=== PATIENT | female | born 1955 | race Caucasian/White ===

== ENCOUNTER 2023-10-09 21:24 | Emergency (ER) | payer OTHER, SELFPAY ==
[2023-10-09 21:28] VITALS: BP 105/84
[2023-10-09 21:46] LABS: % Basophils 0.8 % (0-2); % Eosinophils 2.1 % (0-6); % Immature Granulocytes 0.6 % (0-0.5); % Lymphocytes 19.9 % (20.5-51.1); % Monocytes 6.8 % (1.7-9.3); % Neutrophils 69.8 % (42.2-75.2); Absolute Basophils 0.1 10^3/uL (0-0.2); Absolute Eosinophils 0.2 10^3/uL (0-0.7); Absolute Lymphocytes 1.4 10^3/uL (1.2-3.4); Absolute Monocytes 0.5 10^3/uL (0.1-0.6); Absolute Neutrophils 4.9 10^3/uL (1.4-6.5); Hematocrit 40.8 % (37.0-47.0); Hemoglobin 14.3 g/dL (12.0-16.0); Mean Corpuscular Hgb 29.2 pg (27.0-31.0); Mean Corpuscular Volume 83.4 fL (81.0-99.0); Mean Platelet Volume 9.3 fL (7.4-10.4); Nucleated Red Blood Cells % 0 %; Platelet Count 202 10^3/uL (130-400); Red Blood Cell Count 4.89 10^6/uL (4.20-5.40); Red Cell Dist. Width 13.2 % (11.5-14.5); White Blood Cell Count 7.1 10^3/uL (4.8-10.8)
[2023-10-09 22:04] LABS: ALT (SGPT) 22 U/L (0-35); AST (SGOT) 31 U/L (14-36); Acetaminophen < 10 ug/ml (10-30); Albumin 4.9 g/dl (3.5-5.0); Alkaline Phosphatase 90 U/L (38-126); Blood Urea Nitrogen 20 mg/dl (7-17); Calcium 9.6 mg/dl (8.4-10.2); Carbon Dioxide 27 mmol/L (22-30); Chloride 103 mmol/L (98-107); Glucose 139 mg/dl (70-99); Potassium 3.8 mmol/L (3.5-5.1); Salicylate < 1.0 mg/dl (2.0-20.0); Sodium 138 mmol/L (135-145); Total Bilirubin 2.2 mg/dl (0.2-1.3); Total Protein 8.3 g/dl (6.3-8.2); eGFR > 60.00
--- NOTE | 2023-10-09 22:37 | ED.GENMED ---
History of Present Illness
General
Chief Complaint: Crisis Evaluation
Source: patient
Exam Limitations: none
Time Seen by Provider: 10/09/23 22:00
Travel History
Have you had any contact with someone who has COVID-19?: No
Do you have any symptoms of coronavirus? Fever > 100 degrees, chills, cough, shortness of breath, sore throat, loss of taste or smell, muscle aches, or headache?: No
History of Present Illness
History of Present Illness:
This is a 68 year old female that is brought in by family. Daughter states that she ran away yesterday and got lost in [place]. Patient states that she stayed in a hotel last night. Sstaes that she has been depressed and wanted to get away form it
all. Daughter states that this a chronic problem and she has been hospitalist before for this. Told by family that she was shaking earlier and that she is not eating. Patient states that she is dizzy and the room is spinning.Patient denies any
suicidal thoughts as states that would be the easy way out. Denies any fever, chills, chest pain, abd pain, nausea, vomiting, diarrhea, headache, urinary burning.
Past History
Past History
ED Past Medical History: COPD (on Spiriva and Dulera), Fibromyalgia (takes Aleve prn), HTN, Psychiatric (Anxiety, Depression) and Other (Diverticulitis, )
ED Past Surgical History: Bowel resection (Colon resection), Cholecystectomy, Gynecological (Hysterectomy) and Other (Hernia, )
Social History
Tobacco: Non-smoker
Alcohol: None
Drug: None
Personal:
Living: with family
Employment: Employed
Review of Systems
Review of Systems
All Other Systems: ROS reviewed and negative except as documented in HPI and ROS
Constitutional: Reports no symptoms; Denies fever or chills
EENT: Reports no symptoms
Respiratory: Reports trouble breathing (Always SOB); Denies cough
Cardiac: Reports no symptoms; Denies chest pain
ABD/GI: Reports no symptoms; Denies abdominal pain, nausea, vomiting or diarrhea
: Reports no symptoms; Denies dysuria, frequency or urgency
Musculoskeletal: Reports no symptoms
Skin: Reports no symptoms
Neurological: Reports dizzy; Denies headache
Psychiatric: Reports depression; Denies suicidal
Phy Exam
General Physical Exam
General Presentation: no apparent distress
General age: appears stated age
General Skin: warm and dry
General Habitus: elderly
General Mental: alert
General Hydration: dry mucous membranes
ENT Exam
ENT Exam: TM's normal, pharynx normal and neck supple
Eye Exam
Eye Exam: EOMI
Cardiovascular Exam
Cardiovascular Exam: regular rate/rhythm, no edema, no murmur and normal peripheral pulses
Pulmonary Exam
Pulmonary Exam: lungs clear, no respiratory distress, no rales, chest non tender, no crackles, no rhonchi, no wheezing and no cough
Gastrointestinal Exam
Gastrointestinal Exam: normal bowel sounds, non tender, soft, no organomegaly, no pulsatile mass and non distended
Musculoskeletal Exam
Musculoskeletal Exam: full ROM and no edema
Skin Exam
Skin Exam: normal color, warm/dry, no rash and no petechia
Psychiatric Exam
Psychiatric Exam: depressed (occasionally holding back tears)
Course
Orders/Labs/Results
Orders:
Orders
10/09/23 21:39
Acetaminophen Urgent
Alcohol Urgent
Complete Blood Count/With Diff Urgent
Comprehensive Metabolic Panel Urgent
Salicylate Urgent
10/09/23 22:13
Crisis Consult Urgent
Reason for Consult: evaluation
10/09/23 22:37
Add On- LAB Urgent
Tests Added?: alcohol
Urinalysis Reflex To Culture Urgent
Date Specimen was Collected: 10/10/23
Time Specimen was Collected: 00:27
Urine Drug Abuse Screen Urgent
Date Specimen was Collected: 10/10/23
Time Specimen was Collected: 00:27
0.9% Sodium Chloride 1000 ml [Nss] 1,000 ml IV BOLUS
10/09/23 22:42
COVID-19 Antigen Urgent
Source: Nasal Swab
10/10/23 00:27
Fentanyl, Urine Urgent
Urine Microscopic Reflex Cult Urgent
Urine Culture Urgent
[place] Source: U
Specimen Description:
Date Specimen was Collected: 10/10/23
Time Specimen was Collected: 00:27
Abnormal Lab Results
10/09/23 10/10/23
21:39 00:27
Immature Gran % 0.6 H %
(0-0.5)
Lymphocytes % 19.9 L %
(20.5-51.1)
BUN 20 H mg/dl
(7-17)
Glucose 139 H mg/dl
(70-99)
Total Bilirubin 2.2 H mg/dl
(0.2-1.3)
Total Protein 8.3 H g/dl
(6.3-8.2)
Leukocyte Esterase Rfl 1+ A
(Negative)
Urine RBC 7-10 A /HPF
(0-2)
Urine Bacteria (Reflex) Many A
(Negative)
Salicylates < 1.0 L mg/dl
(2.0-20.0)
Acetaminophen < 10 L ug/ml
(10-30)
U Benzodiazepines Scrn Positive H
(Negative)
U Marijuana (THC) Screen Positive H
(Negative)
10/09/23 21:39
10/09/23 21:39
Dehydration. glucose nonfasting. Total ramirez elevated. Total protein very slightly elevated. Negative for Salicylates and Acetaminophen
Alcohol negative, COVID negative. Urine Drub positive for Benzo's and Marijuana
Urine negative for infection.
Vital Signs
Initial and Last Documented VS:
Initial Vital Signs
Temp Pulse Resp BP Pulse Ox
98.3 F 85 18 105/84 94
10/09/23 21:28 10/09/23 21:28 10/09/23 21:28 10/09/23 21:28 10/09/23 21:28
Last Documented Vital Signs
Temp Pulse Resp BP Pulse Ox
98.3 F 85 18 105/84 94
10/09/23 21:28 10/09/23 21:28 10/09/23 21:28 10/09/23 21:28 10/09/23 21:28
MDM/Problems Addressed
Differential Diagnosis Includes:
Depression.
MDM/Problems Addressed:
This is a 68 year old female that is brought in by family with depression. States that she ran away yesterday and got lost in [place]. States that she is depressed and wanted to get away from it all.
Will get labs, Have Crisis see patient.
Chronic conditions affecting care: Psychiatric illness
Acute Exacerbation and/or Progression of Chronic Illness: Psychiatric illness
*Pulse Oximetry
Patient hypoxic: no
*EKG
Interpreted by ED Provider?: NA
Rate: EKG- N/A
*Novelty Candy Maker Interpretation
Rate: Novelty Candy Maker- N/A
*Critical Care Note
Total Time (30-74mins, 75-104mins- exclusive of procedures): Not Applicable
ED Attending Note
-
Portions of this chart may have been created with voice recognition software.� Occasional wrong word or��sound alike� substitutions may have occurred due to the inherent limitations of voice recognition software.
Discharge Plan
Departure
Patient Disposition: [facility]
Date of Disposition: 10/10/23
Time of Disposition: 00:32
Patient with high blood pressure during this ER visit?: No
Condition: Good
Covid-19: Negative COVID-19
Discharge Problem:
Depression
Instructions: Depression, Adult (DC)
Prescriptions:
No Action
sertraline 100 MG tablet
200 mg PO DAILY
tiotropium bromide [Spiriva with HandiHaler] 18 MCG capsule, w/inhalation device
18 mcg IH BID
mometasone-formoterol [Dulera] 1 PUFF HFA aerosol inhaler
13 gm IH BID
metronidazole 500 MG tablet
500 mg PO TID Qty: 20 0RF
levofloxacin 500 MG tablet
500 mg PO DAILY Qty: 6 0RF
Referrals:
UNKNOWN - PT NOT,INTERVIEWE [Family Provider] -
Activity Restrictions/Additional Instructions:
Please follow up as directed by Crisis.
Interventions
Interventions:
*Risk Screen - Suicide Last Done: 10/09/23 21:28
*General Assessment Last Done: 10/09/23 21:28
*Neglect/Abuse Screening Last Done: 10/09/23 21:28
ED- Fall Risk Assessment Last Done: 10/09/23 22:14
*ED COVID-19 Vaccine History Last Done: 10/09/23 21:28
*Nursing Disposition Last Done: 10/10/23 01:01
ED-Psychological Assessment Last Done: 10/09/23 22:14
Discharge Date and Time
Discharge Date/Time: 10/10/23 01:02
[2023-10-09] MEDS: NSS 1000 IV (23:17)
[2023-10-09 23:33] LABS: COVID-19 Antigen Negative (Negative)
[2023-10-09 23:37] LABS: Alcohol None Detected
[2023-10-10 01:14] LABS: Urine Albumin Negative (Neg - Trace); Urine Bilirubin Negative (Negative); Urine Character Slightly Cloudy (Clear); Urine Color Yellow; Urine Glucose Negative (Negative); Urine Ketone Negative (Negative); Urine Leukocyte 1+ (Negative); Urine Nitrite Negative (Negative); Urine Occult Blood Negative (Negative); Urine Specific Gravity 1.015 (<1.030); Urine Urobilinogen Negative (Neg - 1+)
[2023-10-10 01:26] LABS: Amphetamines Negative (Negative); Barbiturates Negative (Negative); Benzodiazepines Positive (Negative); Buprenorphine Negative (Negative); Cocaine Negative (Negative); Marijuana Positive (Negative); Methadone Negative (Negative); Methamphetamines Negative (Negative); Opiates Negative (Negative); Phencyclidine Negative (Negative); Tricyclic Antidepressants Negative (Negative)
[2023-10-10 01:34] LABS: Fentanyl, Urine Negative (Negative)
[2023-10-10 01:42] LABS: Urine Mucus Many; Urine Squamous Cell >30 /LPF (Few)
[2023-10-10 01:43] LABS: Urine Bacteria Many (Negative)
[2023-10-10 01:45] LABS: Urine Amorphous Seen
== END 2023-10-10 01:02 ==
LOC: EMR 21:24
PROVIDERS: Clinical Nurse Specialist Family Health; Student in an Organized Health Care Education/Training Program; EMERGENCY PHYSICIAN Emergency Medicine
DX: F32.A Depression, unspecified (principal); F12.90 Cannabis use, unspecified, uncomplicated; F19.90 Other psychoactive substance use, unspecified, uncomplicated; E86.0 Dehydration; Z11.52 Encounter for screening for COVID-19
CPT/HCPCS: 99284; 96360; 80053; 80143; 80179; 80306; 80307; 81003; 81015; 82077; 85025; 87086; 87811

== ENCOUNTER 2024-05-10 04:08 | Inpatient (IN) | payer OTHER, SELFPAY ==
[2024-05-10] VITALS (14 sets, daily range): BP systolic 82–185; BP diastolic 45–149; BMI 29.0; BMI 29.1
--- NOTE | 2024-05-10 01:01 | ED.GENMED ---
History of Present Illness
General
Chief Complaint: Bowel Problem
Source: patient, family and ambulance crew
Exam Limitations: none
Time Seen by Provider: 05/10/24 00:43
Nursing documentation reviewed up to this point in time: agreed with
History of Present Illness
History of Present Illness:
This is a 68-year-old woman who has history of asthma/COPD, hypertension, depression as well as prior history of diverticulitis and prior history of diverticular GI bleed who underwent urgent bowel resection with colostomy 2020 with eventual
colostomy reversal. She presents
With abrupt onset of frankly bloody diarrhea that began about 2 hours ago. She states she is passed about 4 or 5 large bright red bloody bowel movements over the past 2 hours and after passing the most recent bloody bowel movement she became
lightheaded and fell onto the bathroom floor but denies loss of consciousness, denies head injury. She also notes some nausea and nonbloody vomiting that began just prior to arrival. She is brought in by EMS. Received 200 cc normal saline bolus
prehospital.
She takes no anticoagulants.
Prior to tonight's been feeling well.
No chest pain nor cough no shortness of breath. No headache, no neck or back pain.
Past History
Past History
ED Past Medical History: COPD (on Spiriva and Dulera), Fibromyalgia (takes Aleve prn), HTN, Psychiatric (Anxiety, Depression) and Other (Diverticulitis, GI bleed)
ED Past Surgical History: Bowel resection (Colon resection), Cholecystectomy, Gynecological (Hysterectomy) and Other (Hernia, )
Social History
Tobacco: Non-smoker
Alcohol: None
Drug: None
Personal:
Living: with family
Employment: Employed
Family History
Family History: Other (Noncontributory)
Phy Exam
Physical Exam
Physical Exam:
GENERAL: 68-year-old woman appears her stated age, awake and alert, appears in moderate distress. Easily communicative. Oriented x 3.
EYE: anicteric. The head is normocephalic, atraumatic.
NECK: Supple, nontender, no meningismus, no significant adenopathy.
ENT: posterior pharynx is clear, oral mucosa is moist. No rhinorrhea.
CARDIAC: Regular rhythm, mildly bradycardic. no murmur.
LUNGS: Clear breath sounds bilaterally, no acute respiratory distress, no wheezes/rales/rhonchi
ABDOMEN: Soft, nondistended, mild to moderate tenderness right lower quadrant without rebound or guarding nor rigidity, mildly hypoactive bowel sounds, no cvat. Rectal exam reveals sintia maroon liquid stool that is heme positive.
NEUROLOGICAL: Alert and oriented x3, no focal neuro deficits.
SKIN: Warm and dry, mildly pale in color, skin intact. No rash.
MUSCULOSKELETAL: No C/C/E. peripheral pulses are full and equal b/l. No palpable tenderness.
PSYCH: Normal and appropriate interaction.
Course
Orders/Labs/Results
Orders:
Orders
05/10/24 01:00
Electrocardiogram (*1) Stat
Reason for Study: Other
Other Reason for Exam: GI Bleed
CT Abd/pelvis Angio W/wo Iv Urgent
Comment:
Reason For Exam: acute lower GI bleeding
Cardiac Monitoring- Treatment ONCE
EKG- Treatment ONCE
IV Insert/Care/Rem.- Treatment PRN
05/10/24 01:01
0.9% Sodium Chloride 1000 ml [Nss] 2,000 ml IV BOLUS
05/10/24 01:05
Type+Screen Urgent
Complete Blood Count/With Diff Urgent
Comprehensive Metabolic Panel Urgent
Lactic Acid Urgent
PTT Urgent
Prothrombin Time Urgent
05/10/24 02:08
Pantoprazole 80 mg/100 ml Nss [Protonix] 80 mg in 100 ml IV NOW
Pantoprazole [Protonix IV] 80 mg IV NOW STA
05/10/24 02:09
0.9% Sodium Chloride 1000 ml [Nss] 1,000 ml IV 250 mls/hr
Abnormal Lab Results
05/10/24
01:05
RBC 3.40 L 10^6/uL
(4.20-5.40)
Hgb 9.8 L g/dL
(12.0-16.0)
Hct 28.5 L %
(37.0-47.0)
Abs Immat Gran (auto) 0.1 H 10^3/uL
(0-0.05)
Immature Gran % 1.2 H %
(0-0.5)
PT 15.1 H Sec
(11.4-14.6)
Creatinine 1.1 H mg/dL
(0.6-1.0)
Glucose 152 H mg/dl
(70-99)
Calcium 8.3 L mg/dl
(8.4-10.2)
Total Protein 5.7 L g/dl
(6.3-8.2)
Albumin 3.3 L g/dl
(3.5-5.0)
05/10/24 01:05
05/10/24 01:05
Vital Signs
Initial and Last Documented VS:
Initial Vital Signs
BP
86/52
05/10/24 00:41
Last Documented Vital Signs
Temp Pulse Resp BP Pulse Ox
98.0 F 72 20 112/45 97
05/10/24 00:42 05/10/24 02:35 05/10/24 02:35 05/10/24 02:35 05/10/24 02:35
MDM/Problems Addressed
Differential Diagnosis Includes:
Patient presents with significant acute rectal bleeding with episode of near syncope versus syncope prehospital.
Moderately hypotensive but remains awake and alert, oriented x 3.
Concern for acute shock, acute blood loss anemia.
Will establish 2 large-bore IVs with initiation of IV fluid resuscitation.
Will type and screen and transfuse as needed.
Will plan for CTA of the abdomen and pelvis
Thus far no recurrent episodes of bleeding since arrival to the ED but will continue to observe for recurrent bleeding and plan for urgent surgical/GI versus IR consult if needed.
Chronic conditions affecting care: Previous abdomnial surgery and Other (History of previous GI bleed)
*Radiology
Radiology exam reviewed: radiology read reviewed (CTA abdomen pelvis shows no active bleeding, no bowel obstruction or focal inflammation. Diverticulosis. Prior rectosigmoid anastomosis. Mild esophageal wall thickening which may be due to
esophagitis or recent vomiting. Small hiatal hernia.)
*Pulse Oximetry
Patient hypoxic: no
*EKG
Interpreted by ED Provider?: Yes
Interpretation: abnormal
Comparison EKG: changes noted (T wave inversion inferiorly is somewhat more prominent than previous EKG 03/23/2022)
Rate: bradycardiac
Rhythm: sinus
[place]: left axis deviation
Interval: first degree heart block and long QT
QRS Pattern: normal QRS
Ischemia: T-wave inversion
*[employer] Administrative Law Judge Interpretation
Rate: bradycardiac
Interpretation: abnormal
Rhythm: sinus
*Critical Care Note
Total Time (30-74mins, 75-104mins- exclusive of procedures): 30
comment:
Critical care statement: A total of 30 minutes of critical care time was provided for this patient. This includes management of unstable vital signs, evaluation of the patient at bedside, reviewing the patient's pertinent medical records, discussion
with consultants, review of old EKGs and review of pertinent medical records. This time with separate from time utilized to perform the aforementioned documented procedures
Update Note
Update Note:
05/10/2024 0202 AM
Blood pressure has improved nicely to 124/53 after IV fluid bolus.
Thus far no recurrent episodes of lower GI bleeding and no return of nausea/vomiting.
Moderate anemia noted with initial hemoglobin of 9.8. Normal white blood cell count. Chemistries show mildly elevated creatinine of 1.1, normal electrolytes, normal lactic acid.
Awaiting CT results.
05/10/2024 0303 AM
Patient remains hemodynamically stable and no further rectal bleeding.
She has had no nausea nor vomiting as well.
She does note that she has been taking Aleve more recently and has had occasional upper abdominal discomfort. Reassuring that she has had no hematemesis but certainly some concern for upper GI bleeding thus IV Protonix and Protonix drip initiated.
CTA of the abdomen pelvis shows no evidence of active bleeding. No evidence of focal inflammation.
Will continue to trend H&H, admit to hospitalist service.
ED Attending Note
-
Portions of this chart may have been created with voice recognition software.� Occasional wrong word or��sound alike� substitutions may have occurred due to the inherent limitations of voice recognition software.
Discharge Plan
Departure
Patient Disposition: Admit
Date of Disposition: 05/10/24
Time of Disposition: 03:05
Admit to: IMU
Admit to doctor: Jay
Presentation/result/management discussed w/ accepting MD/DO: Hospitalist
Condition: Serious
Discharge Problem:
Acute gastrointestinal hemorrhage, Acute blood loss anemia, Hemorrhagic shock
Prescriptions:
No Action
sertraline 100 MG tablet
200 mg PO DAILY
tiotropium bromide [Spiriva with HandiHaler] 18 MCG capsule, w/inhalation device
18 mcg IH BID
mometasone-formoterol [Dulera] 1 PUFF HFA aerosol inhaler
13 gm IH BID
metronidazole 500 MG tablet
500 mg PO TID Qty: 20 0RF
levofloxacin 500 MG tablet
500 mg PO DAILY Qty: 6 0RF
Referrals:
Douglas Little DO [Family Provider] -
Interventions
Interventions:
*Risk Screen - Suicide Last Done: 05/10/24 01:27
*General Assessment Last Done: 05/10/24 00:54
*Neglect/Abuse Screening Last Done: 05/10/24 01:27
ED- Fall Risk Assessment Last Done: 05/10/24 01:27
*ED COVID-19 Vaccine History Last Done: 05/10/24 01:26
YQ-Ecspwg-Rlilbiadoe Assessment Last Done: 05/10/24 01:27
Discharge Date and Time
Print Language: MOZAMBICAN
[2024-05-10] MEDS: NSS 2000 IV (01:13)
[2024-05-10 01:18] LABS: % Basophils 0.8 % (0-2); % Immature Granulocytes 1.2 % (0-0.5); % Lymphocytes 28.8 % (20.5-51.1); % Monocytes 8.1 % (1.7-9.3); % Neutrophils 58.1 % (42.2-75.2); Absolute Basophils 0.1 10^3/uL (0-0.2); Absolute Eosinophils 0.2 10^3/uL (0-0.7); Absolute Immature Granulocytes 0.1 10^3/uL (0-0.05); Absolute Lymphocytes 1.7 10^3/uL (1.2-3.4); Absolute Monocytes 0.5 10^3/uL (0.1-0.6); Absolute Neutrophils 3.5 10^3/uL (1.4-6.5); Hematocrit 28.5 % (37.0-47.0); Hemoglobin 9.8 g/dL (12.0-16.0); Mean Corp Hgb Conc. 34.4 g/dL (33.0-37.0); Mean Corpuscular Hgb 28.8 pg (27.0-31.0); Mean Corpuscular Volume 83.8 fL (81.0-99.0); Mean Platelet Volume 9.7 fL (7.4-10.4); Nucleated Red Blood Cells % 0 %; Platelet Count 187 10^3/uL (130-400); Red Cell Dist. Width 13.6 % (11.5-14.5)
[2024-05-10 01:28] LABS: INR 1.21; PT 15.1 Sec (11.4-14.6)
[2024-05-10 01:29] LABS: APTT 26.7 Sec (23.4-35.0); Lactic Acid 1.9 mmol/L (0.7-2.0)
[2024-05-10 01:31] LABS: ALT (SGPT) 23 U/L (0-35); AST (SGOT) 28 U/L (14-36); Albumin 3.3 g/dl (3.5-5.0); Alkaline Phosphatase 90 U/L (38-126); Blood Urea Nitrogen 16 mg/dl (7-17); Calcium 8.3 mg/dl (8.4-10.2); Carbon Dioxide 24 mmol/L (22-30); Chloride 106 mmol/L (98-107); Estimated Creatinine Clearance 49 ml/min; Glucose 152 mg/dl (70-99); Potassium 3.7 mmol/L (3.5-5.1); Sodium 142 mmol/L (135-145); Total Bilirubin 0.8 mg/dl (0.2-1.3); Total Protein 5.7 g/dl (6.3-8.2); eGFR 54.06
[2024-05-10] MEDS: NSS 1000 IV (02:20)
[2024-05-10] MEDS: PROTONIX IV 80 MG IV (02:22)
[2024-05-10] MEDS: PROTONIX 100 IV (02:28)
--- NOTE | 2024-05-10 03:44 | HPS.HSE ---
Family Physician
-
Family Physician: Douglas Little
Chief Complaint
-
Rectal Bleeding
History of Present Illness
Patient is a 68y F with PMH significant for anxiety / depression and diverticular disease who presents to ED complaining of rectal bleeding. Patient states that she was feeling well until around 8PM this evening. She was out to dinner and had
to move her bowels. She reports a large, bloody bowel movement at the restaurant. She had no significant abdominal pain, lightheadedness, nausea, etc. She returned home where she had 3-4 additional episodes of bright red blood per rectum mixed
with small amounts of stool and clots. Patient began to feel lightheaded and sat on the bathroom floor. She does not believe that she completely lost consciousness. Her called EMS and she was brought to the ED for further evaluation.
In the ED, patient was initial hypotensive which improved with IVFs.
She has had no bloody stools since arrival.
Patient reports prior history of diverticulitis - including perforated diverticulitis requiring emergent sigmoid resection and colostomy formation (since reversed).
No prior history of GI bleeding.
Had a colonoscopy about 5 years ago which was unremarkable.
Medical History
Past Medical History
Past Medical History: Reports Other
Additional Past Medical History:
Anxiety / Depression
Diverticular Disease
Uterine Fibroids
COPD
Past Surgical History: Reports Other
Additional Past Surgical History:
Cholecystectomy
Sigmoid Resection / Colostomy Formation
Colostomy Reversal
Ex Lap / JIMI
HELLEN
Social History
Tobacco: Non-smoker
Alcohol: None
Drug: None
Family History
Family History: Other (Father: DM, CAD Mother: DM, CVA)
Allergies / Home Medications
Allergies reflects when Allergies were last updated in [facility].
Home Medications with original date entered in [facility]
Allergy/Medication List:
Allergies
Allergy/AdvReac Type Severity Reaction Status Date / Time
codeine Allergy hives, Verified 05/10/24 00:51
tinnitus
heparin Allergy Unknown Verified 05/10/24 00:51
Home Medications
mometasone-formoterol HFA 200 mcg-5 mcg/actuation aerosol inhaler (Dulera) 13 gm IH BID 08/05/17
sertraline 100 mg tablet 200 mg PO DAILY 08/05/17
tiotropium bromide 18 mcg capsule with inhalation device (Spiriva with HandiHaler) 18 mcg IH BID 08/05/17
ipratropium 0.5 mg-albuterol 3 mg (2.5 mg base)/3 mL nebulization soln 3 ml inhalation Q6H PRN SOB 05/10/24
quetiapine 50 mg tablet 100 mg PO HS 05/10/24
Review of Systems
-
History Source: Patient
A 12 point ROS was completed and negative except as noted: Yes
Constitutional: Reports Fatigue; Denies Fever or Chills
EENT: Denies Sore Throat
Respiratory: Denies Cough or Trouble Breathing
Cardiac: Denies Chest Pain or Palpitations
Abdomen/GI: Reports Nausea, Diarrhea and Bloody Stools; Denies Abdominal Pain or Vomiting
: Denies Dysuria, Frequency or Flank Pain
Musculoskeletal: Denies Joint Pain or Edema
Neurological: Reports Dizzy; Denies Headache
Psych: Denies Depression or Anxiety
Physical Exam
Vital Signs
Vital Signs
Temp Pulse Resp BP Pulse Ox
98.0 F 70 17 116/47 97
05/10/24 00:42 05/10/24 03:00 05/10/24 03:00 05/10/24 03:00 05/10/24 03:00
Physical Exam
General: Other (68y F in no acute distress.)
HEENT: Moist mucous membranes and PERRLA
Respiratory: Clear; No Wheezes, Rales or Rhonchi
Cardiac: S1/S2 and Regular Rhythm; No Murmur
GI: Soft, Non Distended, Normal Bowel Sounds and Other (Mild tenderness in LLQ. No rebound / guarding. Pos BS.)
Musculoskeletal: No Clubbing, No Cyanosis and No Edema
Neuro: AO x 3
Laboratory Results
-
05/10/24 01:05
05/10/24 01:05
Laboratory Results
PT 15.1 Sec (11.4-14.6) H 05/10/24 01:05
INR 1.21 05/10/24 01:05
APTT 26.7 Sec (23.4-35.0) 05/10/24 01:05
Lactic Acid 1.9 mmol/L (0.7-2.0) 05/10/24 01:05
Total Bilirubin 0.8 mg/dl (0.2-1.3) 05/10/24 01:05
AST 28 U/L (14-36) 05/10/24 01:05
ALT 23 U/L (0-35) 05/10/24 01:05
Alkaline Phosphatase 90 U/L (38-126) 05/10/24 01:05
Impression/Plan
-
A/P: Patient is a 68y F with PMH significant for diverticular disease who presents to ED complaining of bright red blood per rectum.
Hematochezia
Acute Blood Loss Anemia secondary to the above
- Admit for further evaluation and treatment.
- IVF support and follow for BP stability, etc.
- Follow H&H and transfuse if needed for Hgb < 7 or worsening symptoms.
- Hgb currently 9.8 compared to typical baseline 13-14 g/dL.
- GI consult for possible endoscopic examination.
- Suspect diverticular source of bleeding.
- CTA done in the ED this evening was unremarkable - no active source of bleeding noted.
COPD without Acute Exacerbation
- Stable. Continue usual inhaled medication regimen.
- Follow for clinical changes.
Anxiety / Depression
- Stable. Continue Zoloft and Seroquel.
DVT Prophylaxis: SCDs
Code Status: Full
[2024-05-10 06:21] LABS: Hematocrit 26.2 % (37.0-47.0); Hemoglobin 8.8 g/dL (12.0-16.0)
--- NOTE | 2024-05-10 06:25 | PTCARENOTE ---
Pt from ED to IMU with tele orders. Pt with Protonix gtt. Pt AAOX4. Pt has no complaints at this time. Call garduno within reach.
[2024-05-10] MEDS: LR 1000 IV ×2 (06:42→16:56)
[2024-05-10 06:50] LABS: Blood Urea Nitrogen 13 mg/dl (7-17); Calcium 7.2 mg/dl (8.4-10.2); Carbon Dioxide 20 mmol/L (22-30); Chloride 111 mmol/L (98-107); Estimated Creatinine Clearance 68 ml/min; Glucose 124 mg/dl (70-99); Potassium 4.2 mmol/L (3.5-5.1); Sodium 141 mmol/L (135-145); eGFR > 60.00
--- NOTE | 2024-05-10 06:51 | CON.GI ---
Addendum entered and electronically signed by Sindhu Hernandez DO 05/10/24 10:53:
Patient seen and examined independently of HERO. I agree with her note with my additions below
Tiff is a 68-year-old female with extensive diverticulosis who had a diverticular perforation with a sigmoid resection, ostomy placement with reversal who comes in with multiple episodes of hematochezia. She has chronic abdominal pain and uses
Bentyl and says this abdominal pain was slightly worse than her baseline. She had roughly 6 episodes of hematochezia with the last being last night. Her hemoglobin on admission was 9.8 with prior 14 in October 2023. She had a CT angio which showed
no active bleeding but does have extensive diverticular disease. Her platelet count is 187, INR 1.2, creatinine 0.8, total bilirubin 0.8
Suspect diverticular bleed versus less likely ischemia
-Patient's last colonoscopy was with Dr. Carreon roughly 4 years ago and states it was subjectively normal
-No further hematochezia at this time
-Monitor hemoglobin and GI output. Please report the number and color of stools
-Clear liquids for now
PPI, Zofran for intermittent nausea
Original Note:
Consultation
-
Date/Time Consultation Requested: 05/10/24529
Date/Time Consultation Performed: 05/10/2445
Requesting Provider: Roe Thompson DO
Performing Provider: HERO Mccray, Sindhu Hernandez DO
Reason for Consultation: anemia/bleeding
Medical History
Chief Complaint / HPI
Chief Complaint: rectal bleeding
History of Present Illness:
Pt is a 68yo with hx COPD, anxiety/depression, HTN, fibromylagia, colon polyps, diverticular perforation with sigmoid resection/ostomy, then reversal, hernia repair, HELLEN present to ER with onset of rectal bleeding. On admission hbg 9.8 with
prior hbg 14.3 in October 2023. CTA in ER unremarkable. In reviewing with patient hx vaginal bleeding in past but no prior GI bleeding. She admits she went to dinner Friday night then noted with multiple episodes of bleeding that improved on
admission. She admits to chronic abdominal pain with NSAID use and occasional nausea. She otherwise denies dysphagia, GERD, vomiting, diarrhea, constipation or black stools.
Past Medical History
Past Medical History: COPD, Fibromyalgia, HTN, Psychiatric (anxiety/depression) and Other (perforated diverticulitis, uterine fibroids, colon polyps)
Past Surgical History: Bowel Resection (sigmoid resection with colostomy then reversal), Cholecystectomy, Gynecological (HELLEN, prior D+C) and Other (Exp lap with JIMI, hernia repair)
Social History
Tobacco: Non-Smoker
Alcohol: None
Drug: None
Personal:
Living: With Family
Employment: Employed
Family History
Family History: Other (father wtih hx diverticular disease )
Allergies / Home Medications
Allergy/AdvReac Type Severity Reaction Status Date / Time
codeine Allergy hives, Verified 05/10/24 00:51
tinnitus
heparin Allergy Unknown Verified 05/10/24 00:51
�Medication �Instructions �Recorded
mometasone-formoterol HFA 200 13 gm IH BID 08/05/17
mcg-5 mcg/actuation aerosol
inhaler (Dulera)
sertraline 100 mg tablet 200 mg PO DAILY 08/05/17
tiotropium bromide 18 mcg capsule 18 mcg IH BID 08/05/17
with inhalation device (Spiriva
with HandiHaler)
ipratropium 0.5 mg-albuterol 3 mg 3 ml inhalation Q6H PRN SOB 05/10/24
(2.5 mg base)/3 mL nebulization
soln
quetiapine 50 mg tablet 100 mg PO HS 05/10/24
Review of Systems
-
History Source: Patient
Constitutional: Reports No Symptoms
EENT: Reports No Symptoms
Respiratory: Reports No Symptoms
Cardiac: Reports No Symptoms
Abdomen/GI: Reports Abdominal Pain (chronic crampy pain ), Nausea and Bloody Stools
: Reports No Symptoms
Musculoskeletal: Reports No Symptoms
Skin: Reports No Symptoms
Neurological: Reports Weakness
Endocrine: Reports No Symptoms
Hematologic/Lymphatic: Reports Bleeding
Vital Signs
Temp Pulse Resp BP Pulse Ox
98 F 74 19 123/62 95
05/10/24 05:51 05/10/24 06:00 05/10/24 06:00 05/10/24 05:50 05/10/24 05:51
Physical Exam
Exam
General: Well Developed, Well Nourished and No Apparent Distress
HEENT: Normocephalic
Respiratory: Clear
Cardiac: Regular Rhythm
GI: Soft, Non Distended and Tender (minimal with chronic pain )
Musculoskeletal: No Clubbing and No Cyanosis
Skin: Warm and Dry
Neuro: Awake, Alert and AO x 3
Psych: Calm
Results
WBC 6.0 10^3/uL (4.8-10.8) 05/10/24 01:05
Hgb 8.8 g/dL (12.0-16.0) L 05/10/24 06:10
Hct 26.2 % (37.0-47.0) L 05/10/24 06:10
MCV 83.8 fL (81.0-99.0) 05/10/24 01:05
Plt Count 187 10^3/uL (130-400) 05/10/24 01:05
Absolute Neuts (auto) 3.5 10^3/uL (1.4-6.5) 05/10/24 01:05
PT 15.1 Sec (11.4-14.6) H 05/10/24 01:05
INR 1.21 05/10/24 01:05
APTT 26.7 Sec (23.4-35.0) 05/10/24 01:05
Sodium 141 mmol/L (135-145) 05/10/24 06:10
Potassium 4.2 mmol/L (3.5-5.1) 05/10/24 06:10
Chloride 111 mmol/L (98-107) H 05/10/24 06:10
Carbon Dioxide 20 mmol/L (22-30) L 05/10/24 06:10
BUN 13 mg/dl (7-17) 05/10/24 06:10
Creatinine 0.8 mg/dL (0.6-1.0) 05/10/24 06:10
Calcium 7.2 mg/dl (8.4-10.2) L 05/10/24 06:10
Total Bilirubin 0.8 mg/dl (0.2-1.3) 05/10/24 01:05
AST 28 U/L (14-36) 05/10/24 01:05
ALT 23 U/L (0-35) 05/10/24 01:05
Alkaline Phosphatase 90 U/L (38-126) 05/10/24 01:05
Diagnostic Image Results:
05/09 CTA neg per admission H+P
Prior GI Procedures:
EGD: none
Colonoscopy: last 4 years ago at [facility] recall as normal.
Assessment / Plan
-
Pt is a 68yo with hx COPD, anxiety/depression, HTN, fibromyalgia, colon polyps, diverticular perforation with sigmoid resection/ostomy, then reversal, hernia repair present to ER with onset of rectal bleeding. On admission hbg 9.8 with prior hbg
14.3 in October 2023. CTA unremarkable
-rectal bleeding
-anemia
-chronic abdominal pain with NSAID use
-hx diverticular perforation, resection and reversal
-hx colon polyp last colonoscopy 4 years ago at [facility]
other med problems:
-COPD
-Anxiety/depression
-HTN
-fibromyalgia
-hernia repair
PLAN:
etiology of bleeding related to diverticular bleed vs other
CT results pending per ER unremarkable
trend hbg - transfuse as needed
last stool 9 PM 05/08
ok for trial of clear diet
if recurrent bleeding consider CTA vs prep for colonoscopy
discussed NSAID avoidance for chronic abdominal pain - will add Levxin PRN
if bleeding resolves OP follow up at [place] or [place] for colonoscopy
-
-
Thank you for consultation and allowing me to participate in the patient's care. Please call the interventional nurse GI physician during the after hours with any questions or concerns.
[2024-05-10] MEDS: DUONEB 3 ML INH ×3 (07:24→19:34)
--- NOTE | 2024-05-10 07:43 | W.PN.HOSP.TC ---
Addendum entered and electronically signed by Henrik Coronel MD 05/11/24 17:58:
agree as below
Original Note:
Today's Communication/Plan
-
Continue to monitor hemoglobin and GI output. Will follow the number and color of stools. Will continue a clear liquid diet for now and see if that is tolerated. If the patient has no hematochezia tomorrow and is able to tolerate her diet she
would be approaching her baseline. Avoid NSAIDs. If bleeding resolves she will follow-up at [place] or [place] for colonoscopy.
Assessment / Plan
Assessment / Plan
HPI: Patient is a 68-year-old woman with a past medical history of anxiety/depression and diverticular disease who presented to [facility] emergency department complaining of rectal bleeding. Patient stated that she was feeling well until 8
PM of that evening. She was out having dinner and had to go to the bathroom. When she went to the bathroom she had a large bloody bowel movement at the restaurant. During that bowel movement at the restaurant she had no significant abdominal
pain, lightheadedness, nausea, or bloating. After she returned home she had 3-4 additional episodes of bright red blood per rectum mixed with small amounts of stool and clots. After these bowel movements she started to begin to feel lightheaded
and had to sit on the bathroom floor. She did not believe that she completely lost consciousness during that time. Her called EMS and she was brought to the emergency department for further evaluation. In the emergency department she was
hypotensive which improved with IV fluid resuscitation. In the emergency department they conducted a CT angio of the pelvis which showed no acute findings within the abdomen or pelvis or evidence for active GI bleed. CT of the pelvis did show
extensive colonic diverticulosis and postoperative findings of a prior partial distal colonic resection. Patient was admitted to [facility] for diverticulosis.
Assessment/Plan:
-Hematochezia secondary to acute blood loss anemia from diverticulosis:
CT of the pelvis conducted on 05/09/2024 showed extensive colonic diverticulosis and postoperative findings of a prior partial distal colonic resection.
CT angio done in the emergency department was unremarkable with no active source of bleeding found
Patient given IVF support and continue to follow blood pressure
Continue to follow H&H and transfuse if needed for hemoglobin is less than 7 or has acute/worsening symptoms -currently 8.2 on 05/10/2024
Patient's hemoglobin is currently compared to typical baseline of 13 to 14 g/dL
GI has been consulted -they recommend monitoring hemoglobin and GI output and to ensure to report the number and color of stools. They also recommend continuing a clear liquid diet for now. They also recommend continuing PPI and Zofran for
intermittent nausea. If the bleeding resolves they will follow the patient in the outpatient setting and conduct a colonoscopy at that time.
-COPD without acute exacerbation: Stable
Continue usual inhaled medication regimen
-Anxiety/depression: Stable
Continue Zoloft and Seroquel
Patient stated that she receives 3x 50 mg doses of quetiapine at night -will resume
FULL CODE STATUS
DVT prophylaxis: Sequential compression devices
Anticipated Discharge: 24 - 48 hours
Subjective/Interval History
-
Date of Service: May 10, 2024
Met with patient at the bedside. Overall, she is doing better and is hoping that she will be able to better tolerate foods in the near future. She had 1 small maroon bowel movement in the morning and is on a clear liquid diet. She is pleasant in
conversation and states that all of this is relatively new for her.
Objective Data
-
Labs:
Laboratory Results
05/10/24 05/10/24 05/10/24
01:05 06:10 11:33
WBC 6.0
Hgb 9.8 L 8.8 L Pending
Hct 28.5 L 26.2 L Pending
Plt Count 187
PT 15.1 H
INR 1.21
APTT 26.7
Sodium 142 141
Potassium 3.7 4.2
Chloride 106 111 H
Carbon Dioxide 24 20 L
BUN 16 13
Creatinine 1.1 H 0.8
Glucose 152 H 124 H
Calcium 8.3 L 7.2 L
Total Bilirubin 0.8
AST 28
ALT 23
Alkaline Phosphatase 90
05/10/24 05/10/24
17:33 23:33
WBC
Hgb Pending Pending
Hct Pending Pending
Plt Count
PT
INR
APTT
Sodium
Potassium
Chloride
Carbon Dioxide
BUN
Creatinine
Glucose
Calcium
Total Bilirubin
AST
ALT
Alkaline Phosphatase
Vital Signs:
Vital Signs
Temp Pulse Resp BP Pulse Ox
98 F 69 16 123/62 95
05/10/24 05:51 05/10/24 07:30 05/10/24 07:30 05/10/24 05:50 05/10/24 07:30
I&O
05/09/24 05/10/24 05/11/24
06:59 06:59 06:59
Output Total 350 / 350
Balance -350 / -350
Review of Systems
-
History Source: Patient
Constitutional: Reports No Symptoms
EENT: Reports No Symptoms Reported
Respiratory: Reports No Symptoms
Cardiac: Reports No Symptoms
Abdomen/GI: Reports Abdominal Pain
Breast: Reports No Symptoms
Genitourinary: Reports No Symptoms
Musculoskeletal: Reports No Symptoms
Skin: Reports No Symptoms
Neuro: Reports No Symptoms
Endocrine: Reports No Symptoms
Hematologic / Lymphatic: Reports No Symptoms
Allergy / Immunology: Reports No Symptoms
Physical Exam
-
General: Well Developed, Well Nourished and No Apparent Distress
HEENT: Normocephalic, Atraumatic and Moist Mucous Membranes
Respiratory: Clear to Auscultation
Cardiac: Regular Rhythm and S1/S2
Breast: Deferred by me
GI: Soft, Normal Bowel Sounds and Tender
Rectal: Deferred by Provider
Genito-urinary: Deferred by me
Musculoskeletal: No Clubbing, No Cyanosis and No Edema
Skin: Warm and Dry
Neuro: Awake, Alert, Oriented and AO x 3
Psych: Calm
[2024-05-10] MEDS: SYMBICORT 160/4.5 MCG INHALER 2 PUFF INH ×2 (08:44→19:34)
[2024-05-10] MEDS: ZOLOFT 200 MG PO (08:46)
[2024-05-10 11:38] LABS: Hematocrit 23.5 % (37.0-47.0); Hemoglobin 8.2 g/dL (12.0-16.0)
--- NOTE | 2024-05-10 13:29 | PTCARENOTE ---
Recd pt this AM. Pt had one small, maroon colored BM but is tolerating clear, liquid diet. resting comfortably, vital signs stable. 1 assist OOB.
--- NOTE | 2024-05-10 17:10 | CM ---
Patient with Dx rectal bleeding, anemia. Room air. Clear liquid.
Met with patient who resides with her in a 2 story house with 2 [address].
The patient has been independent in ADLs and ambulation.
No DME or prior VN.
SNF - [facility]
PCP - Douglas Little
Pharmacy - [facility]
Offered VN and patient declined.
No CM d/c needs identified.
Plan home.
[2024-05-10] MEDS: ZESTRIL 5 MG PO (17:12)
[2024-05-10 17:56] LABS: Hematocrit 24.4 % (37.0-47.0); Hemoglobin 8.4 g/dL (12.0-16.0)
[2024-05-10] MEDS: SEROQUEL 100 MG PO (20:02)
[2024-05-10 23:08] LABS: Hematocrit 23.1 % (37.0-47.0); Hemoglobin 8.1 g/dL (12.0-16.0)
[2024-05-11] VITALS (8 sets, daily range): BP systolic 134–182; BP diastolic 61–69
[2024-05-11] MEDS: LR 1000 IV ×2 (02:33→15:18)
[2024-05-11] MEDS: DUONEB INH (02:54)
--- NOTE | 2024-05-11 04:54 | PTCARENOTE ---
no acute events overnight, pt remains tele level of care. able to use BSC x1 assist without issues. able to make needs known. care ongoing.
[2024-05-11 06:03] LABS: Hematocrit 22.2 % (37.0-47.0); Hemoglobin 7.6 g/dL (12.0-16.0); Mean Corp Hgb Conc. 34.2 g/dL (33.0-37.0); Mean Corpuscular Hgb 29.1 pg (27.0-31.0); Mean Corpuscular Volume 85.1 fL (81.0-99.0); Mean Platelet Volume 9.3 fL (7.4-10.4); Platelet Count 132 10^3/uL (130-400); Red Blood Cell Count 2.61 10^6/uL (4.20-5.40); Red Cell Dist. Width 13.9 % (11.5-14.5); White Blood Cell Count 4.8 10^3/uL (4.8-10.8)
--- NOTE | 2024-05-11 07:27 | W.PN.HOSP.TC ---
Addendum entered and electronically signed by Henrik Coronel MD 05/11/24 17:59:
monitor hgb
advance diet
monitor for bleeding
potentially can dc tomorrow if tolerating diet without any further drop in hgb
Original Note:
Today's Communication/Plan
-
We will continue to monitor the patient and provide IV fluid support as needed. The patient appears to be tolerating her full liquids diet at the present time. We will advance her to a low residue diet if GI evaluates her and by their assessment
believes that she would be appropriate for diet advancement.
Assessment / Plan
Assessment / Plan
HPI: Patient is a 68-year-old woman with a past medical history of anxiety/depression and diverticular disease who presented to [facility] emergency department complaining of rectal bleeding. Patient stated that she was feeling well until 8
PM of that evening. She was out having dinner and had to go to the bathroom. When she went to the bathroom she had a large bloody bowel movement at the restaurant. During that bowel movement at the restaurant she had no significant abdominal
pain, lightheadedness, nausea, or bloating. After she returned home she had 3-4 additional episodes of bright red blood per rectum mixed with small amounts of stool and clots. After these bowel movements she started to begin to feel lightheaded
and had to sit on the bathroom floor. She did not believe that she completely lost consciousness during that time. Her called EMS and she was brought to the emergency department for further evaluation. In the emergency department she was
hypotensive which improved with IV fluid resuscitation. In the emergency department they conducted a CT angio of the pelvis which showed no acute findings within the abdomen or pelvis or evidence for active GI bleed. CT of the pelvis did show
extensive colonic diverticulosis and postoperative findings of a prior partial distal colonic resection. Patient was admitted to [facility] for diverticulosis.
Assessment/Plan:
-Hematochezia secondary to acute blood loss anemia from diverticulosis:
CT of the pelvis conducted on 05/09/2024 showed extensive colonic diverticulosis and postoperative findings of a prior partial distal colonic resection.
CT angio done in the emergency department was unremarkable with no active source of bleeding found
Patient given IVF support and continue to follow blood pressure
Continue to follow H&H and transfuse if needed for hemoglobin is less than 7 or has acute/worsening symptoms -8.2 on 05/10/2024
Patient's hemoglobin is currently compared to typical baseline of 13 to 14 g/dL
GI has been consulted -they recommend monitoring hemoglobin and GI output and to ensure to report the number and color of stools. They also recommend continuing a clear liquid diet for now. They also recommend continuing PPI and Zofran for
intermittent nausea. If the bleeding resolves they will follow the patient in the outpatient setting and conduct a colonoscopy at that time.
The patient's diet has been advanced to a full liquid diet as per gastroenterology
-COPD without acute exacerbation: Stable
Continue usual inhaled medication regimen
-Anxiety/depression: Stable
Continue Zoloft and Seroquel
Patient stated that she receives 3x 50 mg doses of quetiapine at night -will resume
FULL CODE STATUS
DVT prophylaxis: Sequential compression devices
Anticipated Discharge: > 48 hours
Subjective/Interval History
-
Date of Service: May 11, 2024
Met with patient at the bedside. She feels about the same as she did yesterday and noted that she had a bowel movement that was bloody yesterday afternoon. She continues to have diffuse dull abdominal pain. She has been eating her clear his diet
without any issue.
Objective Data
-
Labs:
Laboratory Results
05/10/24 05/11/24
22:46 05:52
WBC 4.8
Hgb 8.1 L 7.6 L
Hct 23.1 L 22.2 L
Plt Count 132 D
Vital Signs:
Vital Signs
Temp Pulse Resp BP Pulse Ox
98.6 F 63 14 140/69 92
05/11/24 03:44 05/11/24 06:00 05/11/24 06:00 05/11/24 04:00 05/10/24 20:10
I&O
05/10/24 05/11/24 05/12/24
06:59 06:59 06:59
Output Total 350 / 350
Balance -350 / -350
Review of Systems
-
History Source: Patient
All other systems: Reviewed and negative
Constitutional: Reports No Symptoms
EENT: Reports No Symptoms Reported
Respiratory: Reports No Symptoms
Cardiac: Reports No Symptoms
Abdomen/GI: Reports Abdominal Pain (Low dull abdominal pain)
Breast: Reports No Symptoms
Genitourinary: Reports No Symptoms
Musculoskeletal: Reports No Symptoms
Skin: Reports No Symptoms
Neuro: Reports No Symptoms
Endocrine: Reports No Symptoms
Hematologic / Lymphatic: Reports No Symptoms
Physical Exam
-
General: Well Developed, Well Nourished, No Apparent Distress and Comfortable
HEENT: Normocephalic, Atraumatic and Moist Mucous Membranes
Respiratory: Clear to Auscultation
Cardiac: Regular Rhythm and S1/S2
Breast: Deferred by me
GI: Soft, Nondistended and Normal Bowel Sounds
Rectal: Deferred by Provider
Genito-urinary: Deferred by me
Musculoskeletal: No Clubbing, No Cyanosis and No Edema
Skin: Warm, Dry and Rash
Neuro: Awake, Alert, Oriented and AO x 3
Psych: Calm
[2024-05-11] MEDS: SYMBICORT 160/4.5 MCG INHALER 2 PUFF INH ×2 (07:40→19:18)
[2024-05-11] MEDS: DUONEB 3 ML INH (07:40)
[2024-05-11] MEDS: ZOLOFT 200 MG PO (08:40)
[2024-05-11] MEDS: ZESTRIL 5 MG PO (08:40)
[2024-05-11] MEDS: LEVSIN 0.125 MG PO (08:55)
--- NOTE | 2024-05-11 10:25 | PTCARENOTE ---
C/o abd. pain 01/11 - Levsin given without relief- no worse/ tolerable- will d/w providers on rounds.
--- NOTE | 2024-05-11 11:06 | W.PN.GI.CBS2 ---
Addendum entered and electronically signed by Mukesh Christie MD 05/11/24 16:28:
I saw and examined the patient.
The ADMITTING INTERVIEWER or PA's note was reviewed and I agree with the note.
Comment: 68 yo F pmh as below here with hematochezia likely diverticular bleeding seems to have stopped.
Trend Hb, monitor bm.
If stable hb tmwr ok for dc.
If ongoing bleeding will need cscope.
Original Note:
Today's Communication / Plan
-
etiology of bleeding related to diverticular bleed vs other
hbg slight drop to 7.6 this am but no signs of aggressive GI bleeding
will advance to full liquid diet then low residue dinner if tolerating and no bleeding
if recurrent bleeding consider repeat CTA vs prep for colonoscopy
discussed NSAID avoidance for chronic abdominal pain -no improvement with low dose Levsin will try increased dose
if bleeding resolves OP follow up at [place] or [place] for colonoscopy as pt has been seen by [facility] in past
Assessment / Plan
-
Pt is a 68yo with hx COPD, anxiety/depression, HTN, fibromyalgia, colon polyps, diverticular perforation with sigmoid resection/ostomy, then reversal, hernia repair present to ER with onset of rectal bleeding. On admission hbg 9.8 with prior hbg
14.3 in October 2023. CTA unremarkable no active GI bleed, extensive divertculosis and prior partial distal colon resection, mild Splenomegaly, small HH.
Laboratory Tests
05/10/24 05/10/24 05/10/24
06:10 11:29 17:44
Hgb 8.8 L 8.2 L 8.4 L
05/10/24 05/11/24
22:46 05:52
Hgb 8.1 L 7.6 L
-rectal bleeding
-anemia
-chronic abdominal pain with NSAID use
-hx diverticular perforation, resection and reversal
-hx colon polyp last colonoscopy 4 years ago at [place]
other med problems:
-COPD
-Anxiety/depression
-HTN
-fibromyalgia
-hernia repair
PLAN:
etiology of bleeding related to diverticular bleed vs other
hbg slight drop to 7.6 this am but no signs of aggressive GI bleeding
will advance to full liquid diet then low residue dinner if tolerating and no bleeding
if recurrent bleeding consider repeat CTA vs prep for colonoscopy
discussed NSAID avoidance for chronic abdominal pain -no improvement with low dose Levsin will try increased dose
if bleeding resolves OP follow up at [place] or [place] for colonoscopy as pt has been seen by [facility] in past
Subjective
Subjective
Date of Service: May 11, 2024
on clear diet only small stool reported per nursing yesterday, still some crampy abdominal pain which is chronic no improvement with low dose hyoscyamine
Objective
Data Reviewed
Laboratory Data:
Laboratory Results
05/11/24 05:52
05/10/24 06:10
Laboratory Results
PT 15.1 Sec (11.4-14.6) H 05/10/24 01:05
INR 1.21 05/10/24 01:05
APTT 26.7 Sec (23.4-35.0) 05/10/24 01:05
Total Bilirubin 0.8 mg/dl (0.2-1.3) 05/10/24 01:05
AST 28 U/L (14-36) 05/10/24 01:05
ALT 23 U/L (0-35) 05/10/24 01:05
Alkaline Phosphatase 90 U/L (38-126) 05/10/24 01:05
Vital Signs and I&O:
Vital Signs
Temp Pulse Resp BP Pulse Ox
97.9 F 71 16 150/63 92
05/11/24 07:51 05/11/24 10:00 05/11/24 10:00 05/11/24 09:00 05/10/24 20:10
I&O
05/10/24 05/11/24 05/12/24
06:59 06:59 06:59
Output Total 350 / 350
Balance -350 / -350
Physical Exam
Physical Exam
HEENT: Anicteric and Moist mucous membranes
Cardiology: Normal Sinus Rhythm
Pulmonary: Clear
GI: Soft and Non Distended
--- NOTE | 2024-05-11 15:45 | TRANSFER ---
Pt admitted into room 436-2 from IMU. AAOx3, ambulated from stretcher to bed. Pt complaining of abdominal discomfort, PRN levsin given, see MAR. Plan of care ongoing.
[2024-05-11] MEDS: LEVSIN 0.25 MG PO (16:06)
[2024-05-11 16:30] LABS: Hematocrit 26.4 % (37.0-47.0)
[2024-05-11] MEDS: BENTYL 10 MG PO (21:24)
[2024-05-11] MEDS: SEROQUEL 150 MG PO (21:24)
[2024-05-12] MEDS: LR 1000 IV (02:14)
[2024-05-12 03:12] VITALS: BP 156/56
[2024-05-12] MEDS: SYMBICORT 160/4.5 MCG INHALER 2 PUFF INH (07:37)
[2024-05-12] MEDS: SPIRIVA RESPIMAT 2.5 MCG 2 PUFF INH (07:37)
[2024-05-12 07:59] LABS: Hematocrit 23.3 % (37.0-47.0); Hemoglobin 7.9 g/dL (12.0-16.0); Mean Corp Hgb Conc. 33.9 g/dL (33.0-37.0); Mean Corpuscular Hgb 28.8 pg (27.0-31.0); Mean Platelet Volume 9.5 fL (7.4-10.4); Platelet Count 145 10^3/uL (130-400); Red Blood Cell Count 2.74 10^6/uL (4.20-5.40); Red Cell Dist. Width 13.9 % (11.5-14.5); White Blood Cell Count 4.7 10^3/uL (4.8-10.8)
[2024-05-12 08:06] VITALS: BP 141/62
[2024-05-12] MEDS: ZOLOFT 200 MG PO (10:03)
[2024-05-12] MEDS: ZESTRIL 5 MG PO (10:03)
--- NOTE | 2024-05-12 10:17 | PN.CDI ---
Addendum entered and electronically signed by Ana Guerra MD, Resident 05/12/24 15:08:
I don't believe this patient meets criteria for shock based on HR, normal Lactate, and not enough clinical signs to indicate shock. Thanks.
Original Note:
CDI
- -
CDI:
Physician Documentation Request
Admit Date: 05/10/24 04:08
Dear Doctor Homer,
Please review the following and provide your response in the progress notes.
Current documentation includes a diagnosis of hypotension.
Clinical Indicators:
Pt admitted with ABLA / Suspected Diverticular bleed
Documented per ED, ' ...With abrupt onset of frankly bloody diarrhea that began about 2 hours ago. She states she is passed about 4 or 5 large bright red bloody bowel movements over the past 2 hours and after passing the most recent bloody bowel
movement she became lightheaded and fell onto the bathroom floor...Moderately hypotensive....Concern for acute shock, acute blood loss anemia....Hemorrhagic shock...'
Per MAR did get 4 Liters of IVFs
Selected Entries
05/10/24
00:41 05/10/24
00:44 05/10/24
01:00
Blood pressure 86/52 82/49 92/51
Please provide a diagnosis for the above findings:
Hypovolemic Shock
Hemorrhagic shock
Other ( please specify)
Use of terms such as suspected, likely, concern for, or probable (associated with a specific diagnosis that is being evaluated, monitored, or treated as if it exists) are acceptable and can be coded in the inpatient setting, when documented at the
time of discharge.
Thank you,
Juliana Olivares RN
CDI Specialist
[place] [facility]
Please use your independent medical judgment in providing your response.
[2024-05-12 11:19] VITALS: BP 155/60
--- NOTE | 2024-05-12 11:53 | W.PN.HOSP.TC ---
Addendum entered and electronically signed by Henrik Coronel MD 05/13/24 18:31:
Hemorrhagic shock
Addendum entered and electronically signed by Henrik Coronel MD 05/12/24 14:01:
Potentially, able to dc later today if Hgb remains stable.
If not stable then will need to keep her and re-discuss bidirectional scope needs with GI
Original Note:
Today's Communication/Plan
-
Will recheck H&H today in the afternoon and if stable we will move forward with discharge planning. Appreciate gastroenterology recommendations on discharge.
Assessment / Plan
Assessment / Plan
Assessment/Plan:
-Hematochezia secondary to acute blood loss anemia from diverticulosis:
CT of the pelvis conducted on 05/09/2024 showed extensive colonic diverticulosis and postoperative findings of a prior partial distal colonic resection.
CT angio done in the emergency department was unremarkable with no active source of bleeding found
Patient given IVF support and continue to follow blood pressure
Continue to follow H&H and transfuse if needed for hemoglobin is less than 7 or has acute/worsening symptoms -8.2 on 05/10/2024
Patient's hemoglobin is currently compared to typical baseline of 13 to 14 g/dL
GI has been consulted -they recommend monitoring hemoglobin and GI output and to ensure to report the number and color of stools. They also recommend continuing a clear liquid diet for now. They also recommend continuing PPI and Zofran for
intermittent nausea. If the bleeding resolves they will follow the patient in the outpatient setting and conduct a colonoscopy at that time.
The patient's diet has been advanced to a low residue diet as per gastroenterology
We will assess the patient's H&H at around 2 PM and if stable we will move forward with discharge planning
-COPD without acute exacerbation: Stable
Continue usual inhaled medication regimen
-Anxiety/depression: Stable
Continue Zoloft and Seroquel
Patient stated that she receives 3x 50 mg doses of quetiapine at night -will resume
FULL CODE STATUS
DVT prophylaxis: Sequential compression devices
Anticipated Discharge: Within 24 hours
Subjective/Interval History
-
Date of Service: May 12, 2024
Met with patient at the bedside. She offers no complaints at the present time and her last bowel movement had no blood in it. She has been eating and drinking normally and has been tolerating her diet well. She is hoping to go home as she feels
much better and believes that she is at her baseline.
Objective Data
-
Labs:
Laboratory Results
05/12/24
06:53
WBC 4.7 L
Hgb 7.9 L
Hct 23.3 L
Plt Count 145
Vital Signs:
Vital Signs
Temp Pulse Resp BP Pulse Ox
98.3 F 67 16 155/60 92
05/12/24 11:19 05/12/24 11:19 05/12/24 11:19 05/12/24 11:19 05/12/24 11:19
I&O
05/11/24 05/12/24 05/13/24
06:59 06:59 06:59
Intake Total 960 / 960
Balance 960 / 960
Review of Systems
-
History Source: Patient
All other systems: Reviewed and negative
Constitutional: Reports No Symptoms
EENT: Reports No Symptoms Reported
Respiratory: Reports No Symptoms
Cardiac: Reports No Symptoms
Abdomen/GI: Reports No Symptoms
Breast: Reports No Symptoms
Genitourinary: Reports No Symptoms
Musculoskeletal: Reports No Symptoms
Skin: Reports No Symptoms
Neuro: Reports No Symptoms
Endocrine: Reports No Symptoms
Hematologic / Lymphatic: Reports No Symptoms
Physical Exam
-
General: Well Developed, Well Nourished and No Apparent Distress
HEENT: Normocephalic and Atraumatic
Respiratory: Clear to Auscultation and Other (Intermittent cough)
Cardiac: Regular Rhythm and S1/S2
Breast: Deferred by me
GI: Soft, Nontender, Nondistended and Normal Bowel Sounds
Musculoskeletal: No Clubbing and No Cyanosis
Skin: Warm, Dry and Normal Turgor
Neuro: Awake, Alert, Oriented and AO x 3
Psych: Calm
[2024-05-12] MEDS: LR IV (13:09)
[2024-05-12] MEDS: BENTYL 20 MG PO (13:17)
[2024-05-12 14:07] LABS: Hematocrit 24.4 % (37.0-47.0); Hemoglobin 8.5 g/dL (12.0-16.0)
--- NOTE | 2024-05-12 14:38 | W.DCSUMMARY ---
Documented by User: Ana Guerra MD, Resident 05/12/24 16:20
Discharge Summary
Discharge Data
Date of Admission: 05/10/24
Date of Discharge: 05/12/24
-
Pending Results: No
Hospital Course
Patient is a 68-year-old woman with a past medical history of anxiety/depression and diverticular disease who presented to [facility] emergency department complaining of rectal bleeding. Patient stated that she was feeling well until 8 PM of
that evening. She was out having dinner and had to go to the bathroom. When she went to the bathroom she had a large bloody bowel movement at the restaurant. During that bowel movement at the restaurant she had no significant abdominal pain,
lightheadedness, nausea, or bloating. After she returned home she had 3-4 additional episodes of bright red blood per rectum mixed with small amounts of stool and clots. After these bowel movements she started to begin to feel lightheaded and had
to sit on the bathroom floor. She did not believe that she completely lost consciousness during that time. Her called EMS and she was brought to the emergency department for further evaluation. In the emergency department she was
hypotensive which improved with IV fluid resuscitation. In the emergency department they conducted a CT angio of the pelvis which showed no acute findings within the abdomen or pelvis or evidence for active GI bleed. CT of the pelvis did show
extensive colonic diverticulosis and postoperative findings of a prior partial distal colonic resection. Patient was admitted to [facility] for diverticulosis.
Initially the patient was given IVF fluid support and given a duration of bowel rest. H&H was trended and monitored. She was monitored for melanotic stools and had 1 bloody stool the first day of her admission. She did not have any bloody stools
after that. She was given a PPI for ulcer prophylaxis along with Zofran for intermittent nausea. She was advanced to a clear liquid diet and continue the PPI along with Zofran for intermittent nausea. She tolerated the clear liquid diet and was
advanced to a low residue diet which she tolerated as well. There was a slight drop of hemoglobin to a 7.6 on 05/11/2024 but subsequent blood draw for hemoglobin showed a stable hemoglobin at 8.5. There was consideration of need for a repeat CTA or
a colonoscopy if recurrent bleeding occurred but fortunately the bleeding resolved and there was no need for further testing. Gastroenterology discussed the importance of NSAID avoidance for chronic abdominal pain with the patient. The patient
believes that she is at her baseline and hopes to be discharged home. The patient has been recommended to follow-up at [place] or [place] for colonoscopy as the patient has been seen by [place] gastroenterology in the past.
The patient has reached maximal benefit from this hospital stay and is appropriate for discharge at the present time. There are no barriers that would impede this patient from being safely discharged. The patient should follow-up at [place] to
[place] for colonoscopy as the patient has been seen by [place] gastroenterology in the past. The patient should avoid NSAIDs in the future. The patient is appropriate for follow-up with her primary care provider in the outpatient setting 1 to
2 weeks after discharge.
Discharge Plan
-
Patient Disposition: Home (Routine Discharge)
Discharge Diagnosis/Procedures: Hematochezia secondary to acute blood loss anemia from diverticulosis
Condition: Good
Diet: No restrictions
Activity: No restrictions
Driving Restrictions: As prior to admission
Bathing Restrictions: None
Referrals:
Douglas Little DO [Family Provider] - in one to two weeks
Sindhu Hernandez DO [Active] - in two to three weeks (GI follow up at [place] or [place] to review for repeat colonoscopy with recent bleeding)
Additional Discharge Medication Instructions: Avoid NSAIDs
Prescriptions:
New
lisinopril 5 mg Tablet
5 mg PO DAILY 30 Days Qty: 30 0RF
Continued
sertraline 100 MG tablet
200 mg PO DAILY
tiotropium bromide [Spiriva with HandiHaler] 18 MCG capsule, w/inhalation device
18 mcg IH BID
Dulera 1 PUFF HFA aerosol inhaler
13 gm IH BID
ipratropium-albuterol 0.5 mg-3 mg(2.5 mg base)/3 mL Solution For Nebulization
3 ml INHALATION Q6H PRN (Reason: SOB)
quetiapine 50 mg Tablet
150 mg PO HS
Patient Comments:
'I take 3 50mg tabs at bedtime'
Discharge Orders:
Discharge Patient (As Directed); Ordered 05/12/24
Ordered By: Ana Guerra
Discharge Date and Time
Discharge Date/Time: 05/12/24 16:27
Print Language: NORWEGIAN

Documented by User: Henrik Coronel MD 05/13/24 18:32
Discharge Summary
Discharge Data
Date of Admission: 05/10/24
Date of Discharge: 05/13/24
Discharge Plan
-
Patient Disposition: Home (Routine Discharge)
Discharge Diagnosis/Procedures: Hematochezia secondary to acute blood loss anemia from diverticulosis
Condition: Good
Diet: No restrictions
Activity: No restrictions
Driving Restrictions: As prior to admission
Bathing Restrictions: None
Referrals:
Douglas Little DO [Family Provider] - in one to two weeks
Sindhu Hernandez DO [Active] - in two to three weeks (GI follow up at [place] or [place] to review for repeat colonoscopy with recent bleeding)
Additional Discharge Medication Instructions: Avoid NSAIDs
Prescriptions:
New
lisinopril 5 mg Tablet
5 mg PO DAILY 30 Days Qty: 30 0RF
Continued
sertraline 100 MG tablet
200 mg PO DAILY
tiotropium bromide [Spiriva with HandiHaler] 18 MCG capsule, w/inhalation device
18 mcg IH BID
Dulera 1 PUFF HFA aerosol inhaler
13 gm IH BID
ipratropium-albuterol 0.5 mg-3 mg(2.5 mg base)/3 mL Solution For Nebulization
3 ml INHALATION Q6H PRN (Reason: SOB)
quetiapine 50 mg Tablet
150 mg PO HS
Patient Comments:
'I take 3 50mg tabs at bedtime'
Discharge Orders:
Discharge Patient (As Directed); Ordered 05/12/24
Ordered By: Ana Guerra
Discharge Date and Time
Discharge Date/Time: 05/12/24 16:27
Print Language: NORWEGIAN
[2024-05-12 15:24] VITALS: BP 176/79
--- NOTE | 2024-05-12 15:35 | CM ---
Home today no needs.
Plan; Home no needs.
== END 2024-05-12 16:27 | disposition home or self-care (01) | DRG 377 ==
LOC: 4 WEST ACU 04:08
PROVIDERS: Nurse Practitioner Adult Health; Student in an Organized Health Care Education/Training Program; ADMITTING PHYSICIAN Hospitalist; ATTENDING PHYSICIAN Hospitalist; CONSULT PHYSICIAN Internal Medicine; EMERGENCY PHYSICIAN Emergency Medicine; FAMILY PHYSICIAN Family Medicine
DX: K57.31 Diverticulosis of large intestine without perforation or abscess with bleeding (principal); R57.8 Other shock; D62 Acute posthemorrhagic anemia; F32.A Depression, unspecified; F41.9 Anxiety disorder, unspecified; J44.9 Chronic obstructive pulmonary disease, unspecified
CPT/HCPCS: 74174; 80048; 80053; 83605; 85014; 85018; 85025; 85027; 85610; 85730; 86850; 86900; 86901; 93005; 94640; 96361; 96374; 99291; Q9967

== ENCOUNTER 2025-06-09 10:36 | Inpatient (IN) | payer OTHER, MEDICARE, SELFPAY ==
[2025-06-08 14:00] VITALS: BP 174/78
[2025-06-08 14:09] LABS: Glucose - Point of Care 106 mg/dl (70-99)
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
[2025-06-08 14:43] VITALS: BP 166/83
--- NOTE | 2025-06-08 14:51 | ED.CVA ---
History of Present Illness
<HERO Young - Last Filed: 06/08/25 20:50>
General
Chief Complaint: CVA/TIA Symptoms
Source: patient
Exam Limitations: none
Time Seen by Provider: 06/08/25 14:21
Nursing documentation reviewed up to this point in time: agreed with
Onset of Stroke Symptoms
Onset of symptoms known: No
Time pt last seen normal is known: No
History of Present Illness
History of Present Illness:
Patient is a 69-year-old female presents to the ER for evaluation. Stroke alert was called prior to my exam and patient was evaluated by neurology and is in CAT scan.
reports patient took 4 of her Seroquel instead of 3 of her Seroquel last night around 9 PM. He said she went to sleep and he last saw her at 9:15 PM. This morning at 9:15 AM she walked down the steps and was carrying wash it was very
unsteady and her speech was very slurred. She thought she was tired so told her to go back to sleep. reports when he checked on after she woke up she was still the same which is what prompted him to come to the ER.
Patient is awake alert her speech is slurred. She is aware that her speech is slurred. She feels generalized weak. She denies any headache now family reports she did have a headache. Family ports she fell and hit the back of her head on Friday.
She admits to taking 4 of her Seroquel instead of 3 because she could not sleep.
Past History
<HERO Young - Last Filed: 06/08/25 20:50>
Past History
ED Past Medical History: COPD (on Spiriva and Dulera), Fibromyalgia (takes Aleve prn), HTN, Psychiatric (Anxiety, Depression) and Other (Diverticulitis, GI bleed)
ED Past Surgical History: Bowel resection (Colon resection), Cholecystectomy, Gynecological (Hysterectomy), Tonsilectomy and Other (Hernia, )
Social History
Tobacco: Non-smoker
Alcohol: None
Drug: None
Personal:
Living: with family
Employment: Employed
Family History
Family History: Other (Noncontributory)
Phy Exam
<HERO Young - Last Filed: 06/08/25 20:50>
General Physical Exam
General Presentation: no apparent distress
General age: appears stated age
General Skin: warm and dry
General Habitus: normal
General Mental: alert
General Hydration: appears well hydrated
ENT Exam
ENT Exam: EOMI
Eye Exam
Eye Exam: PERRL, EOMI and other (right eye is injected )
Eye Exam General: PERRL: bilateral and EOM intact: bilateral
Pupil Exam: Bilateral: round and reactive
Cardiovascular Exam
Cardiovascular Exam: regular rate/rhythm, normal peripheral pulses and systolic murmur
Pulmonary Exam
Pulmonary Exam: lungs clear and no respiratory distress
Neurological Exam
Neurological Exam: alert, oriented x3, no motor deficits, no sensory deficits, normal gait and slurred speech
[place]andon Coma Scale
Eye Opening: Spontaneous
Motor Response: Obeys Commands
Cerebellar
Cerebellar Function: normal finger to nose
Musculoskeletal Exam
Musculoskeletal Exam: full ROM
Skin Exam
Skin Exam: normal color and warm/dry
Psychiatric Exam
Psychiatric Exam: normal mood/affect
Course
<HERO Young - Last Filed: 06/08/25 20:50>
Orders/Labs/Results
Orders:
Orders
06/08/25 14:08
Electrocardiogram (*1) Urgent
Reason for Study: Other
Other Reason for Exam: Possible Stroke
CT HEAD STROKE ALERT W/o Cont Urgent
Comment:
Reason For Exam: trouble speaking, unsteady, facial droop
Bedside Glucose- Treatment ONCE
Cardiac Monitoring- Treatment ONCE
EKG- Treatment ONCE
Weight As Directed
Frequency: Once
Comment: ZERO STRETCHER SCALE FOR ACCURATE WEIGHT
06/08/25 14:19
CT HEAD/NECK ANG STROKE ALERT Stat
Comment:
Reason For Exam: stenosis
06/08/25 14:46
Complete Blood Count/With Diff Urgent
Comprehensive Metabolic Panel Urgent
PTT Urgent
Prothrombin Time Urgent
Troponin I Urgent
06/08/25 16:16
Speech Therapy Eval & Treat Urgent
06/08/25 16:20
Admit/Transfer Patient As Directed
Co-Sign Provider:
Level of Care: Observation services
Assign to:: Telemetry
Physician / Group: Judy
Diagnosis: Speech Abnormality
Reason for Telemetry: CVA/TIA
Date to Stop Telemetry: 06/11/25
Time to Stop Telemetry: 11:00
PRN Pain Medication Management As Directed
May give lesser potent ordered pain med per pt: Yes
preference::
Protocol:: Medication orders for pain may be administered in a
manner that supports deferring to patient preference
when the pt is:
- Requesting an ordered lesser potent pain medication.
Least to most potent pain medications are defined
as: acetaminophen < NSAID < tramadol < opioids
(morphine, oxycodone, hydromorphone).
- Requesting a lesser dose of the same medication IF
ORDERED.
- Requesting a less intrusive route of administration
if both routes are prescribed by the provider (PO <
IV).
06/08/25 16:21
Code Status As Directed
Resuscitation Status: Full Code
06/08/25 16:26
Swallow Screening CVA/TIA ONLY As Directed
If patient FAILS swallow screening:: NPO
If patient PASSES swallow screening, diet:: IDDSI 4 Pureed
06/08/25 16:32
Aspirin Chewable [Low Strength Aspirin] 324 mg PO NOW STA
Clopidogrel Bisulfate [Plavix] 300 mg PO NOW STA
06/08/25 18:08
Acetaminophen [Tylenol/Feverall] 650 mg RECTAL Q4HPRN PRN
Acetaminophen [Tylenol] 650 mg PO Q4HPRN PRN
Erythromycin (Ilotycin) [Erythromycin 0.5% Ophthalmic Ointment] See Dose Instructions OPHTH QID
06/08/25 18:08
Case Management Consult ONCE
Case Management Consult: Discharge Planning
Comment: stroke/tia
DIETARY IP CONSULT Routine
Reason for Consult: stroke/TIA
Excel Developer Routine
MR Brain Without Contrast Routine
Comment:
Reason For Exam: stroke/TIA
Recent pill cam endoscopy?: No
Activity As Directed
Activity Level: Out of Bed-Early Mobility
NIH Stroke Scale As Directed
Directions: Per protocol
Comment: every shift and with any change in condition or mental status
Neurological Checks As Directed
Frequency: q4h
Additional Instructions:: q4h x 24h upon admission to the floor, then qshift & with any change in condition
and mental status
Patient Education As Directed
Type: Stroke education packet
Comment: provide to patient and family
Pneumatic Compression Sleeves As Directed
Type: Knee high
Vital Signs As Directed
Frequency: Per unit guidelines
Call for:: BP greater than 180/105 mmHg or less than 100/60 mmHg
Ot Eval And Treat Routine
Pt Eval And Treat Routine
Activity Level: Out of Bed-Early Mobility
DX Deep Vein Thrombosis Video Routine
06/08/25 20:00
Budesonide/Formoterol 160/4.5 [Symbicort 160/4.5 Mcg Inhaler] 2 puff INH R BID
06/08/25 22:00
Quetiapine Fumarate [Seroquel] 150 mg PO HS
06/09/25 06:00
Basic Metabolic Panel IN AM
Cardiovascular Evaluation IN AM
Complete Blood Count/No Diff IN AM
Glycohemoglobin (HgbA1c) IN AM
Magnesium IN AM
06/09/25 08:00
Aspirin Chewable [Low Strength Aspirin] 81 mg PO DAILY
Clopidogrel Bisulfate [Plavix] 75 mg PO DAILY
Sertraline HCl [Zoloft] 200 mg PO DAILY
06/11/25 11:00
DC Protocol for Telemetry ONCE
Abnormal Lab Results
06/08/25 06/08/25
14:07 14:46
RBC 4.15 L 10^6/uL
(4.20-5.40)
Hgb 11.9 L g/dL
(12.0-16.0)
Hct 35.3 L %
(37.0-47.0)
PT 14.9 H Sec
(11.4-14.6)
Glucose 118 H mg/dl
(70-99)
POC Glucose 106 H mg/dl
(70-99)
06/08/25 14:46
06/08/25 14:46
Vital Signs
Initial and Last Documented VS:
Initial Vital Signs
Temp Pulse Resp BP Pulse Ox
97.7 F 68 18 174/78 94
06/08/25 14:00 06/08/25 14:00 06/08/25 14:00 06/08/25 14:00 06/08/25 14:00
Last Documented Vital Signs
Temp Pulse Resp BP Pulse Ox
98.5 F 64 19 192/82 96
06/08/25 18:30 06/08/25 18:30 06/08/25 18:30 06/08/25 18:30 06/08/25 18:30
Cash Applications Clerk consulted with Physician
Cash Applications Clerk consulted with physician?: Yes
Name of Physician Consulted: Dain
<Modesto Gautam MD - Last Filed: 06/08/25 16:00>
Orders/Labs/Results
Orders:
Orders
06/08/25 14:08
Electrocardiogram (*1) Urgent
Reason for Study: Other
Other Reason for Exam: Possible Stroke
CT HEAD STROKE ALERT W/o Cont Urgent
Comment:
Reason For Exam: trouble speaking, unsteady, facial droop
Bedside Glucose- Treatment ONCE
Cardiac Monitoring- Treatment ONCE
EKG- Treatment ONCE
Weight As Directed
Frequency: Once
Comment: ZERO STRETCHER SCALE FOR ACCURATE WEIGHT
06/08/25 14:19
CT HEAD/NECK ANG STROKE ALERT Stat
Comment:
Reason For Exam: stenosis
06/08/25 14:46
Complete Blood Count/With Diff Urgent
Comprehensive Metabolic Panel Urgent
PTT Urgent
Prothrombin Time Urgent
Troponin I Urgent
06/08/25 16:16
Speech Therapy Eval & Treat Urgent
06/08/25 16:20
Admit/Transfer Patient As Directed
Co-Sign Provider:
Level of Care: Observation services
Assign to:: Telemetry
Physician / Group: Judy
Diagnosis: Speech Abnormality
Reason for Telemetry: CVA/TIA
Date to Stop Telemetry: 06/11/25
Time to Stop Telemetry: 11:00
PRN Pain Medication Management As Directed
May give lesser potent ordered pain med per pt: Yes
preference::
Protocol:: Medication orders for pain may be administered in a
manner that supports deferring to patient preference
when the pt is:
- Requesting an ordered lesser potent pain medication.
Least to most potent pain medications are defined
as: acetaminophen < NSAID < tramadol < opioids
(morphine, oxycodone, hydromorphone).
- Requesting a lesser dose of the same medication IF
ORDERED.
- Requesting a less intrusive route of administration
if both routes are prescribed by the provider (PO <
IV).
06/08/25 16:21
Code Status As Directed
Resuscitation Status: Full Code
06/08/25 16:26
Swallow Screening CVA/TIA ONLY As Directed
If patient FAILS swallow screening:: NPO
If patient PASSES swallow screening, diet:: IDDSI 4 Pureed
06/08/25 16:32
Aspirin Chewable [Low Strength Aspirin] 324 mg PO NOW STA
Clopidogrel Bisulfate [Plavix] 300 mg PO NOW STA
06/08/25 18:08
Acetaminophen [Tylenol/Feverall] 650 mg RECTAL Q4HPRN PRN
Acetaminophen [Tylenol] 650 mg PO Q4HPRN PRN
Erythromycin (Ilotycin) [Erythromycin 0.5% Ophthalmic Ointment] See Dose Instructions OPHTH QID
06/08/25 18:08
Case Management Consult ONCE
Case Management Consult: Discharge Planning
Comment: stroke/tia
DIETARY IP CONSULT Routine
Reason for Consult: stroke/TIA
Excel Developer Routine
MR Brain Without Contrast Routine
Comment:
Reason For Exam: stroke/TIA
Recent pill cam endoscopy?: No
Activity As Directed
Activity Level: Out of Bed-Early Mobility
NIH Stroke Scale As Directed
Directions: Per protocol
Comment: every shift and with any change in condition or mental status
Neurological Checks As Directed
Frequency: q4h
Additional Instructions:: q4h x 24h upon admission to the floor, then qshift & with any change in condition
and mental status
Patient Education As Directed
Type: Stroke education packet
Comment: provide to patient and family
Pneumatic Compression Sleeves As Directed
Type: Knee high
Vital Signs As Directed
Frequency: Per unit guidelines
Call for:: BP greater than 180/105 mmHg or less than 100/60 mmHg
Ot Eval And Treat Routine
Pt Eval And Treat Routine
Activity Level: Out of Bed-Early Mobility
DX Deep Vein Thrombosis Video Routine
06/08/25 20:00
Budesonide/Formoterol 160/4.5 [Symbicort 160/4.5 Mcg Inhaler] 2 puff INH R BID
06/08/25 22:00
Quetiapine Fumarate [Seroquel] 150 mg PO HS
06/09/25 06:00
Basic Metabolic Panel IN AM
Cardiovascular Evaluation IN AM
Complete Blood Count/No Diff IN AM
Glycohemoglobin (HgbA1c) IN AM
Magnesium IN AM
06/09/25 08:00
Aspirin Chewable [Low Strength Aspirin] 81 mg PO DAILY
Clopidogrel Bisulfate [Plavix] 75 mg PO DAILY
Sertraline HCl [Zoloft] 200 mg PO DAILY
06/11/25 11:00
DC Protocol for Telemetry ONCE
Abnormal Lab Results
06/08/25 06/08/25
14:07 14:46
RBC 4.15 L 10^6/uL
(4.20-5.40)
Hgb 11.9 L g/dL
(12.0-16.0)
Hct 35.3 L %
(37.0-47.0)
PT 14.9 H Sec
(11.4-14.6)
Glucose 118 H mg/dl
(70-99)
POC Glucose 106 H mg/dl
(70-99)
06/08/25 14:46
06/08/25 14:46
Vital Signs
Initial and Last Documented VS:
Initial Vital Signs
Temp Pulse Resp BP Pulse Ox
97.7 F 68 18 174/78 94
06/08/25 14:00 06/08/25 14:00 06/08/25 14:00 06/08/25 14:00 06/08/25 14:00
Last Documented Vital Signs
Temp Pulse Resp BP Pulse Ox
98.5 F 64 19 192/82 96
06/08/25 18:30 06/08/25 18:30 06/08/25 18:30 06/08/25 18:30 06/08/25 18:30
<HERO Young - Last Filed: 06/08/25 20:50>
MDM/Problems Addressed
Differential Diagnosis Includes:
Not limited to stroke medication reaction
MDM/Problems Addressed:
Patient is a 69-year-old female who presented as a stroke alert. Patient apparently was last seen normal by her last night at 9:15 PM. This morning at 9:15 AM she woke up with slurred speech and unsteady gait. Apparently it was found the
patient took 4 of her Seroquel last night at 9 PM instead of 3 in order to sleep. Patient was eval by neurology CT head CTA head and neck negative. Patient is now steady but still has garbled speech. She has no focal deficits. Will continue to
observe. Patient eval by ED physician. On exam she incidentally does have some right conjunctival irritation possible conjunctivitis
<HERO Young - Last Filed: 06/08/25 20:50>
*Radiology
Radiology exam reviewed: radiology read reviewed
*Pulse Oximetry
SaO2: 94
Oxygen Mode of Delivery: Room air
Patient hypoxic: no
*EKG
Interpreted by ED Provider?: Yes
Interpretation: abnormal
Comparison EKG: no changes
Heart Rate: 64
Rate: normal
Rhythm: sinus
Interval: first degree heart block
Ischemia: non-specific ST changes
*Critical Care Note
Total Time (30-74mins, 75-104mins- exclusive of procedures): Not Applicable
<HERO Young - Last Filed: 06/08/25 20:50>
Patient Management
Discussion with other providers: Manager Print (neuro DR Olivo )
ED Attending Note
<HERO Young - Last Filed: 06/08/25 20:50>
-
Portions of this chart may have been created with voice recognition software.� Occasional wrong word or��sound alike� substitutions may have occurred due to the inherent limitations of voice recognition software.
<Modesto Gautam MD - Last Filed: 06/08/25 16:00>
ED Attending Note
Patient seen and examined by attending physician: Yes
ED Attending Note:
I have seen and evaluated the patient with a [id number] encounter. I have spoken to the advance practicer provider and involved in the medical history, the physical exam, medical decision making.
Evaluation and management service: agree unless noted differently below.
Results interpretation: agree unless noted differently below.
Focused HPI: 69-year-old female with history as noted presents to the ER for evaluation of speech difficulties and swallowing difficulties. Patient woke up with symptoms this morning, last was normal before bed at around 9 PM last night. She
complains of difficulty speaking and swallowing but denies any headache or neck pain, facial droop., Focal weakness or numbness in extremities. Of note patient says that she took an extra dose of risperidone last night unintentionally.
Physical exam: Awake and alert. Hypertensive but otherwise normal vitals. She is dysarthric. Cranial nerves intact. Motor and sensory intact in all extremities. No cardiac rubs gallops or murmurs appreciated. On exam of her eyes she does
appear to have some conjunctival injection and some purulent discharge from the right eye.
Medical Decision Makin-year-old female presents as a stroke alert woke up this morning with some dysarthria. She did take an extra dose of risperidone last night. She was called as a stroke alert in triage seen in consultation with neurology.
CTA head and neck no acute abnormalities. Overall suspect this is medication related but with persistent symptoms will admit for observation. She does have conjunctivitis will treat with antibiotic drops. Admit to hospitalist service.
Discharge Plan
Departure
Patient Disposition: Admit
Date of Disposition: 06/08/25
Time of Disposition: 15:51
Admit to: Telemetry
Admit to doctor: hospitalist
Presentation/result/management discussed w/ accepting MD/DO: Hospitalist
Patient with high blood pressure during this ER visit?: Yes
Condition: Fair
Covid-19: Not Applicable
Discharge Problem:
Altered mental status, Acute conjunctivitis, right eye
Interventions
Interventions:
*Risk Screen - Suicide Last Done: 06/08/25 14:00
*General Assessment Last Done: 06/08/25 14:42
*Neglect/Abuse Screening Last Done: 06/08/25 14:39
*ED- Fall Risk Assessment Last Done: 06/08/25 14:42
*ED COVID-19 Vaccine History Last Done: 06/08/25 14:39
*ED Influenza Vaccine History Last Done: 06/08/25 14:39
*Nursing Disposition Last Done: 06/08/25 18:01
ED- Pulmonary Assessment Last Done: 06/08/25 14:41
ED- Neurological Assessment Last Done: 06/08/25 14:45
ED- Cardiac Assessment Last Done: 06/08/25 14:41
ED Swallowing Screen Last Done: 06/08/25 17:34
Discharge Date and Time
Discharge Date/Time: 06/08/25 18:15
[2025-06-08 14:54] LABS: Hematocrit 35.3 % (37.0-47.0); Hemoglobin 11.9 g/dL (12.0-16.0); Mean Corp Hgb Conc. 33.7 g/dL (33.0-37.0); Mean Corpuscular Volume 85.1 fL (81.0-99.0); Nucleated Red Blood Cells % 0 %; Platelet Count 158 10^3/uL (130-400); Red Cell Dist. Width 13.6 % (11.5-14.5)
[2025-06-08 15:10] LABS: APTT 30.1 Sec (23.4-35.0); INR 1.12; PT 14.9 Sec (11.4-14.6)
[2025-06-08 15:29] LABS: ALT (SGPT) 18 U/L (0-35); AST (SGOT) 24 U/L (14-36); Albumin 4.0 g/dl (3.5-5.0); Alkaline Phosphatase 67 U/L (38-126); Blood Urea Nitrogen 14 mg/dl (7-17); Calcium 8.8 mg/dl (8.4-10.2); Carbon Dioxide 28 mmol/L (22-30); Chloride 101 mmol/L (98-107); Glucose 118 mg/dl (70-99); Potassium 3.8 mmol/L (3.5-5.1); Sodium 136 mmol/L (135-145); Total Protein 6.9 g/dl (6.3-8.2); eGFR > 60.00
[2025-06-08 15:32] LABS: Troponin I < 0.012 ng/ml
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
--- NOTE | 2025-06-08 17:46 | CM ---
Chart reviewed and spoke with patient and at ED bedside
HARDY explained and reviewed
Lives with in [address]
Independent with ADLs, no DME drives
4 adult children and [address] David Liao
RX plan yes
Pharmacy [facility]
hx of [facility]
hx of [facility]
DCP is to return home
can drive her home
CM to follow up for any dcp needs
[2025-06-08 18:30] VITALS: BP 192/82; BMI 29.0
[2025-06-08] MEDS: LOW STRENGTH ASPIRIN 324 MG PO (18:31)
[2025-06-08] MEDS: SYMBICORT 160/4.5 MCG INHALER 2 PUFF INH (19:19)
[2025-06-08] MEDS: PLAVIX 300 MG PO (20:49)
[2025-06-08] MEDS: ERYTHROMYCIN 0.5% OPHTHALMIC OINTMENT 1 APPLIC OPHTH ×2 (20:49→22:07)
[2025-06-08] MEDS: SEROQUEL 150 MG PO (22:06)
[2025-06-08] MEDS: APRESOLINE 5 MG IV (22:56)
[2025-06-08 23:00] VITALS: BP 204/92
[2025-06-09] VITALS (12 sets, daily range): BP systolic 127–185; BP diastolic 64–85; PULSE 65; O2SAT 92; BMI 29.0
--- NOTE | 2025-06-09 04:34 | PTCARENOTE ---
Pt alarmed VTACH on tele monitor. A strip was printed and sent to the house provider. HR jumped up to 104. Patient is sleeping and asymptomatic. House provider informed this RN to continue to monitor. AM labs were drawn early to see where MAG level
is.
[2025-06-09 05:17] LABS: Hematocrit 36.5 % (37.0-47.0); Hemoglobin 12.3 g/dL (12.0-16.0); Mean Corp Hgb Conc. 33.7 g/dL (33.0-37.0); Mean Corpuscular Volume 84.9 fL (81.0-99.0); Platelet Count 167 10^3/uL (130-400); Red Cell Dist. Width 13.6 % (11.5-14.5)
[2025-06-09 05:49] LABS: Blood Urea Nitrogen 13 mg/dl (7-17); Calcium 8.7 mg/dl (8.4-10.2); Carbon Dioxide 27 mmol/L (22-30); Chloride 105 mmol/L (98-107); Estimated Creatinine Clearance 60 ml/min; Glucose 112 mg/dl (70-99); HDL Cholesterol 30 mg/dl; LDL Cholesterol, Calculated 139 mg/dl; Magnesium 2.1 mg/dl (1.6-2.3); Potassium 3.9 mmol/L (3.5-5.1); Sodium 140 mmol/L (135-145); Very Low Density Lipoprotein 55 mg/dl (0-30); eGFR > 60.00
[2025-06-09] MEDS: SYMBICORT 160/4.5 MCG INHALER 2 PUFF INH ×2 (07:27→19:16)
[2025-06-09] MEDS: ERYTHROMYCIN 0.5% OPHTHALMIC OINTMENT 1 APPLIC OPHTH ×4 (08:36→22:00)
[2025-06-09] MEDS: PLAVIX 75 MG PO (08:36)
[2025-06-09] MEDS: LOW STRENGTH ASPIRIN 81 MG PO (08:36)
[2025-06-09 09:40] LABS: Glycohemoglobin (HgbA1c) 5.5 % (4.0-5.9)
[2025-06-09] MEDS: ZOLOFT 200 MG PO (09:48)
[2025-06-09] MEDS: APRESOLINE 5 MG IV ×2 (09:55→15:29)
--- NOTE | 2025-06-09 10:34 | PTOTSP ---
Dysphagia Evaluation:
Pt presents w/ acute (CVA) and chronic (COPD) risk factors for aspiration dysphagia. No reports of difficulty swallowing from pt and no overt s/sx of aspiration observed during bedside swallow evaluation. Given, acute and chronic risk factors,
cannot rule out silent aspiration. It is recommended that pt is placed on IDDSI 6 Soft & Bite Size, Thins w/ ST to follow up to observe diet level tolerance and determine if further instrumental swallow study warranted to rule out silent aspiration.
Pt presents w/ speech changes, including mild-moderate dysarthia. Quick Aphasia Battery (QAB) administered to further assess language domains. Pt score of 9.07 indicates no aphasia. Mild-moderate dysarthria observed in conversation speech,
characterized by imprecise articulation and hoarse, weak, and hypernasal vocal quality.
Recommendations:
1. IDDSI 6 Soft & Bite Size, Thins
2. Medications as best tolerated
3. Partial supervision/assistance w/ meals
4. Strategies:
5. F/U w/ ST to observe diet level tolerance, determine if further instrumental swallow study warranted to objectively rule out silent aspiration given acute and chronic risk factors, and further assess and treat speech/language at the acute care
level.
--- NOTE | 2025-06-09 12:30 | W.PN.HOSP.TC ---
Addendum entered and electronically signed by Henrik Coronel MD 06/09/25 12:54:
Left carotid mild atherosclerotic calcification with less than 30#
outpatient follow up with PCP
Likely will need repeat ultrasound follow up in 2-3years or earlier if noted to have symptoms
Original Note:
Today's Communication/Plan
-
Assessment / Plan
Assessment / Plan
NAD
Scleral Anicteric
MMM, aphasic
No JVD
CTABL
RRR, S1/S2
Soft, NT, ND, BS+
Warm, Dry
AAOx3, slight facial droop on right
Calm
Acute CVA
Left internal capsule, LDL 130s, A1c 5.5
Lipitor 40 mg at bedtime
2D echocardiogram
PT OT recommended ARU
Physiatry consult
Neurology consult
Right Eye Conjunctivitis
Continue erythromycin ointment
COPD, no acute exacerbation
Continue Dulera
Anxiety / Depression
Continue sertraline and quetiapine as prior to admission
ARU
Anticipated Discharge: Today
Subjective/Interval History
-
Date of Service: June 09, 2025
Seen and examined. No new complaints. No acute overnight events.
Objective Data
-
Labs:
Laboratory Results
06/09/25
04:47
WBC 6.2
Hgb 12.3
Hct 36.5 L
Plt Count 167
Sodium 140
Potassium 3.9
Chloride 105
Carbon Dioxide 27
BUN 13
Creatinine 0.9
Glucose 112 H
Calcium 8.7
Vital Signs:
Vital Signs
Temp Pulse Resp BP Pulse Ox
98.3 F 78 18 134/64 96
06/09/25 11:00 06/09/25 11:00 06/09/25 11:00 06/09/25 11:00 06/09/25 11:00
I&O
06/08/25 06/09/25 06/10/25
06:59 06:59 06:59
Intake Total 240 / 240
Balance 240 / 240
--- NOTE | 2025-06-09 14:50 | W.PN.NEURO.1 ---
Today's Communication / Plan
-
Provide aspirin and clopidogrel with discontinuance of clopidogrel after 21 days due to the low NIH stroke scale
5-year monitoring by annual CTA of head and neck of right clinoid 2 x 2 mm aneurysm
Goal of normotension based on time greater than 24 hours
Atorvastatin 80 mg daily
Rehabilitation evaluations
Provide medical educational materials
Goal of normoglycemia
Neuro Assessment/Plan
Assessment
Abrupt onset of change in speech and ambulation of unclear timing
Most likely toxic metabolic in nature although patient does have a change on MRI which is suggestive of a left internal capsule acute ischemic stroke
Patient was not a candidate for either tenecteplase or clot retrieval due to low NIH stroke scale and absence of clot for mechanical thrombectomy
Plan
Provide aspirin and clopidogrel with discontinuance of clopidogrel after 21 days due to the low NIH stroke scale
5-year monitoring by annual CTA of head and neck of right clinoid 2 x 2 mm aneurysm
Goal of normotension based on time greater than 24 hours
Atorvastatin 80 mg daily
Rehabilitation evaluations
Provide medical educational materials
Goal of normoglycemia
Patient should be seen by vascular neurosurgeon as outpatient in approximately 1 year
Subjective/Objective
Subjective Data
Date of Service: June 09, 2025
Objective Data
Vital Signs
Temp Pulse Resp BP Pulse Ox
36.8 C 78 18 134/64 96
06/09/25 11:00 06/09/25 11:00 06/09/25 11:00 06/09/25 11:00 06/09/25 11:00
Lab Results
06/09/25 04:47
06/09/25 04:47
PT 14.9 Sec (11.4-14.6) H 06/08/25 14:46
INR 1.12 06/08/25 14:46
APTT 30.1 Sec (23.4-35.0) 06/08/25 14:46
Sodium 140 mmol/L (135-145) 06/09/25 04:47
Potassium 3.9 mmol/L (3.5-5.1) 06/09/25 04:47
BUN 13 mg/dl (7-17) 06/09/25 04:47
Glucose 112 mg/dl (70-99) H 06/09/25 04:47
Calcium 8.7 mg/dl (8.4-10.2) 06/09/25 04:47
LDL Cholesterol, Calc 139 mg/dl 06/09/25 04:47
Patient Allergies
codeine Allergy (Verified 06/08/25 14:05)
hives, tinnitus
heparin Allergy (Verified 06/08/25 14:05)
Unknown
lorazepam (From Ativan) Allergy (Verified 06/08/25 14:05)
Unknown
Data Reviewed
-
MRI Head: Report Reviewed and Image Reviewed
Labs: Report Reviewed
Lipid Profile: Ordered
Reviewed with: Physician
Old Records: Summarized
Past History
Past History
ED Past Medical History: COPD (on Spiriva and Dulera), CVA (June 2025), Fibromyalgia (takes Aleve prn), HTN, Psychiatric (Anxiety, Depression) and Other (Diverticulitis, GI bleed)
ED Past Surgical History: Bowel resection (Colon resection), Cholecystectomy, Gynecological (Hysterectomy), Tonsilectomy and Other (Hernia, )
Social History
Tobacco: Non-smoker
Alcohol: None
Drug: None
Personal:
Living: with family
Employment: Employed
Family History
Family History: Other (Reviewed and noncontributory)
Medications
-
Medications:
Generic Name Dose Route Start Last Admin
Trade Name Freq PRN Reason Stop Dose Admin
Acetaminophen 650 mg 06/08/25 18:08
Acetaminophen 650 Mg Rectal Suppository RECTAL 07/06/25 18:07
Q4HPRN PRN
MITCHELL, mild pain, or temp >100.4F
Acetaminophen 650 mg 06/08/25 18:08
Acetaminophen 325 Mg Tablet PO 07/06/25 18:07
Q4HPRN PRN
MITCHELL, mild pain, or temp >100.4F
Aspirin 81 mg 06/09/25 08:00 06/09/25 08:36
Aspirin 81 Mg Chewable Tablet PO 07/07/25 07:59 81 mg
DAILY SONNY Administration
Atorvastatin Calcium 40 mg 06/09/25 18:00
Atorvastatin (Lipitor) 40 Mg Tablet PO 07/07/25 17:59
QPM SONNY
Budesonide/Formoterol Fumarate 2 puff 06/08/25 20:00 06/09/25 07:27
Symbicort Inhaler 160/4.5 INH 07/06/25 19:59 2 puff
R BID SONNY Administration
Protocol
Clopidogrel Bisulfate 75 mg 06/09/25 08:00 06/09/25 08:36
Clopidogrel 75 Mg Tablet PO 07/07/25 07:59 75 mg
DAILY SONNY Administration
Erythromycin 0 applic 06/08/25 18:08 06/09/25 14:20
Erythromycin 0.5% (Ophthalmic Ointment) 1 Gram Tube OPHTH 06/18/25 18:07 1 applic
QID SONNY Administration
Hydralazine HCl 5 mg 06/08/25 18:32 06/09/25 09:55
Hydralazine 20 Mg/Ml Vial IV 07/06/25 18:31 5 mg
Q4HPRN PRN Administration
SBP > 180
Quetiapine Fumarate 150 mg 06/08/25 22:00 06/08/25 22:06
Quetiapine 100 Mg Tablet PO 07/06/25 21:59 150 mg
HS SONNY Administration
Sertraline HCl 200 mg 06/09/25 08:00 06/09/25 09:48
Sertraline 100 Mg Tablet PO 07/07/25 07:59 200 mg
DAILY SONNY Administration
Sodium Chloride 0 flush 06/08/25 19:00
Sodium Chloride 0.9% (Flush) Syringe IV 07/06/25 18:59
PER PROTOCOL SONNY
--- NOTE | 2025-06-09 15:22 | CM ---
CM Consult Completed; Acute Rehab referral sent to [facility]; referral accepted
Plan: Discharge to [facility] when stable
[2025-06-09] MEDS: LIPITOR 80 MG PO (17:20)
[2025-06-09] MEDS: ZOFRAN 4 MG IV (17:20)
[2025-06-09] MEDS: MELATONIN 5 MG PO (21:55)
[2025-06-09] MEDS: SEROQUEL 150 MG PO (21:56)
[2025-06-10 03:50] VITALS: BP 108/51
[2025-06-10 06:00] VITALS: BMI 28.0
[2025-06-10 07:24] VITALS: BP 126/76
[2025-06-10] MEDS: SYMBICORT 160/4.5 MCG INHALER 2 PUFF INH (07:35)
--- NOTE | 2025-06-10 08:40 | CON.MD ---
Documented by User: Katlin Pina PA-C 06/10/25 09:04
Consultation - Medical
-
Referring Provider:�Henrik Mejia
Chief Complaint:�CVA
�
History of Present Illness:� Patient is a 69-year-old female with PMH of (anxiety, COPD on Spiriva and Dulera, diverticular disease, h/o diverticulitis and GI bleed, fibromyalgia on only as needed, hypertension, h/o uterine fibroids, anxiety,
depression) who presented to the ED with change in speech and worsening gait dysfunction. Patient reported to have fallen and hitting the back of her head 2 days prior to ED visit. MRI of the brain revealed 1.6 mm acute ischemic infarct in the
posterior limb of the left internal capsule. Multiple small chronic ischemic lacunar infarcts in the deep mann and white matter bilaterally 9 multiple infarcts in the thalami and putamen) 6 mm chronic infarct in the griselda. Small chronic
periventricular white matter infarcts in the frontal lobes. Moderate periventricular white matter leukoaraiosis in the frontal lobes. 5 mm chronic intraparenchymal microhemorrhage in the right cerebellar hemisphere. Mild diffuse cerebral and
cerebellum volume loss.
Seen by neurology�with assessment of Abrupt onset of change in speech and ambulation of unclear timing. Most likely toxic metabolic in nature although patient does have a change on MRI which is suggestive of a left internal capsule acute ischemic
stroke. Patient was not a candidate for either tenecteplase or clot retrieval due to low NIH stroke scale and absence of clot for mechanical thrombectomy. Recommended starting on aspirin and Plavix with discontinuation of Plavix after 21 days due
to low NIH stroke scale. 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
�
06/10- Going for echo today.
Past Medical History:�
Procedure History:�Colostomy reversal, sigmoid resection/colostomy formation, cholecystectomy, exploratory lap/JIMI, HELLEN, tonsillectomy
Family History:�DM, CVA- Mom, Dad, Brother
Social History:�
Functional Level Premorbidly:�Independent with all activities�, assist spouse recently with ADLs due to recent toe amputation
Functional Level Currently:� Speech- recommended soft and bite-size with thins and with supervision since cannot rule out silent aspiration. Will follow and observe as tolerated. Bed mobility, grooming,�supervision, lower extremity self-care�min
assist, eating�set up,
�
Tobacco:�Denies�
Alcohol:�Denies�
Drug use:�Denies�
�
Lives with:�Spouse
24-hour assistance available:�
Number of floors:�2
# steps to enter:�2
# steps to second floor: FF
Potential First floor set up:�
Driving:�Yes
Occupation:�Employed
�
�
Allergies:�
Allergy/AdvReac Type Severity Reaction Status Date / Time
codeine Allergy hives, Verified 06/08/25 14:05
tinnitus
heparin Allergy Unknown Verified 06/08/25 14:05
lorazepam (From Ativan) Allergy Unknown Verified 06/08/25 14:05
�
Review of Systems:�
Constitutional: (x) Normal _
Eye: (x) abNormal _redness . conjunctivitis
Ear/Nose/Throat: (x) Normal _
Respiratory: (x) Normal _
Cardiovascular: (x) Normal _
Gastrointestinal: (x) Normal _
Genitourinary: (x) Normal _
Musculoskeletal: (x) Normal _
Integumentary: (x) Normal _
Neurologic: (x) abNormal _stroke, dysarthria
Psychiatric: (x) abNormal _anxiety, depression
Endocrine: (x) Normal _
Hematologic/Lymphatic: (x) Normal _
Allergic/Immunologic: (x) Normal _
�
Medications:�
Active Current Visit Medication List
Category Date Time Status
Acetaminophen [Tylenol/Feverall] Med 06/08/25 18:08 Active
650 mg RECTAL Q4HPRN PRN
Acetaminophen [Tylenol] Med 06/08/25 18:08 Active
650 mg PO Q4HPRN PRN
Aspirin Chewable [Low Strength Aspirin] Med 06/09/25 08:00 Active
81 mg PO DAILY
Atorvastatin [Lipitor] Med 06/09/25 18:00 Active
80 mg PO QPM
Budesonide/Formoterol 160/4.5 [Symbicort 160/4.5 Mcg Med 06/08/25 20:00 Active
Inhaler]
2 puff INH R BID
Clopidogrel Bisulfate [Plavix] Med 06/09/25 08:00 Active
75 mg PO DAILY
Erythromycin (Ilotycin) [Erythromycin 0.5% Ophthalmic Med 06/08/25 18:08 Active
Ointment]
See Dose Instructions OPHTH QID
Flush (0.9% Sodium Chloride) [Flush (Nss)] Med 06/08/25 19:00 Active
See Dose Instructions IV PER PROTOCOL
HydrALAZINE [Apresoline] Med 06/08/25 18:32 Active
5 mg IV Q4HPRN PRN
Quetiapine Fumarate [Seroquel] Med 06/08/25 22:00 Active
150 mg PO HS
Sertraline HCl [Zoloft] Med 06/09/25 08:00 Active
200 mg PO DAILY
�
Vitals:�
Temp Pulse Resp BP Pulse Ox
97.6 F 82 17 126/76 99
06/10/25 07:24 06/10/25 07:24 06/10/25 07:24 06/10/25 07:24 06/10/25 07:24
Height 5 ft 5 in
Actual Weight 76.459 kg
Body Mass Index (BMI) 28.0
�
Physical Exam:�
General Appearance/Observation: Well-developed, well-nourished individual in no apparent distress.�
Pain/Comfort Assessment: Denies�
Mood/Affect: Appropriate�
�
Integumentary/Operative Site:�
�� Pressure Ulcer Evaluation: absent over heels.�
�
� Other Type of Wound: absent�
��
�
Eyes: Conjunctiva/Lids: some redness, no exudate���� Pupils: pupils equal round and reactive to light and Accommodation,
Ears/Nose/Throat: oral mucosa moist,� throat clear.������������ Lips/Teeth/Gums: normal�
Neck: No muscle spasm or tenderness�
Cardiovascular: Heart: regular, no murmur�
Pulses: dorsalis pedis 2+ bilaterally�
Respiratory: Respiratory Effort/Chest Expansion: normal������� Auscultation: diminished bs, clear to auscultation bilaterally�
Gastrointestinal: abdomen not tender, no distension, normal abdominal bowel sounds
Genitourinary: No Chandler�Extremities:�Edema: None�Cyanosis: None�Trophic�changes: None
�
Neurology Exam:
Orientation: Alert, Oriented to self, Time, Place�
Memory: Impaired, except for basic information
Comprehension: Some impairment with processing.
Two step command: Impaired, needed repeating. Was unable to subtract by 3. Redirected and was still subtracting by 1
Naming: Name TV, clock, table, tray. Able to read time on clock.
Cranial Nerves:
�� CNII:�Pupillary light reflex: Intact����Visual Field: Intact
�� CN III, IV, : Extraocular muscles: Intact�, no convergence
�� CN V:�Facial Sensation�intact�Forehead: Intact,�Maxilla: Intact,�Mandible: Intact
�� CN VII:�Facial movement: weakness on right
�� CN VIII:�Hearing: Normal
�� CN IX/X:�Speech & swallow: dysarthric, mild hoarseness�Position of Uvula: Midline
�� CN XI:�Shoulder shrug: Weakness on right
�� CN XII:�Tongue protrusion: Slight deviation to right
Sensory:
�� Light touch: Intact in bilateral upper and lower extremities
��
�
Reflexes:
�� Biceps: 2+ bilaterally
�� Brachioradialis: 2+ bilaterally
�� Triceps: 2+ bilaterally
�� Patellar: 2+ bilaterally
�� Achilles: absent bilaterally
�� Babinski: Down going bilaterally
�� Clonus: None
�� Stephen: Negative bilaterally�
Cerebellar: Dysmetria/Ataxia: [id number] coordination impaired on the right
Musculoskeletal:
Motor: (Manual muscle scale 0-5)�
Muscle SA EF WE EE FF FA HF KE DF EHL PF
Right� 4 4+ 4 4 4+ 4 5 5 5 5 5
Left 5 5 5 5 5 5 5 5 5 5 5
�
Tone: Normal in all extremities�
Range of Motion: Passively within normal limits in all extremities�
�
Lab Results
Labs
WBC 6.2 10^3/uL (4.8-10.8) 06/09/25 04:47
RBC 4.30 10^6/uL (4.20-5.40) 06/09/25 04:47
Hgb 12.3 g/dL (12.0-16.0) 06/09/25 04:47
Hct 36.5 % (37.0-47.0) L 06/09/25 04:47
MCV 84.9 fL (81.0-99.0) 06/09/25 04:47
MCH 28.6 pg (27.0-31.0) 06/09/25 04:47
MCHC 33.7 g/dL (33.0-37.0) 06/09/25 04:47
RDW 13.6 % (11.5-14.5) 06/09/25 04:47
Plt Count 167 10^3/uL (130-400) 06/09/25 04:47
MPV 9.5 fL (7.4-10.4) 06/09/25 04:47
Abs Immat Gran (auto) 0.0 10^3/uL (0-0.05) 06/08/25 14:46
Absolute Neuts (auto) 3.9 10^3/uL (1.4-6.5) 06/08/25 14:46
Absolute Lymphs (auto) 1.3 10^3/uL (1.2-3.4) 06/08/25 14:46
Absolute Monos (auto) 0.4 10^3/uL (0.1-0.6) 06/08/25 14:46
Absolute Eos (auto) 0.3 10^3/uL (0-0.7) 06/08/25 14:46
Absolute Basos (auto) 0.1 10^3/uL (0-0.2) 06/08/25 14:46
Immature Gran % 0.5 % (0-0.5) 06/08/25 14:46
Neutrophils % 65.4 % (42.2-75.2) 06/08/25 14:46
Lymphocytes % 21.8 % (20.5-51.1) 06/08/25 14:46
Monocytes % 7.1 % (1.7-9.3) 06/08/25 14:46
Eosinophils % 4.3 % (0-6) 06/08/25 14:46
Basophils % 0.9 % (0-2) 06/08/25 14:46
Nucleated RBC % 0 % 06/08/25 14:46
PT 14.9 Sec (11.4-14.6) H 06/08/25 14:46
INR 1.12 06/08/25 14:46
APTT 30.1 Sec (23.4-35.0) 06/08/25 14:46
Sodium 140 mmol/L (135-145) 06/09/25 04:47
Potassium 3.9 mmol/L (3.5-5.1) 06/09/25 04:47
Chloride 105 mmol/L (98-107) 06/09/25 04:47
Carbon Dioxide 27 mmol/L (22-30) 06/09/25 04:47
BUN 13 mg/dl (7-17) 06/09/25 04:47
Creatinine 0.9 mg/dL (0.6-1.0) 06/09/25 04:47
Estimated Creat Clear 60 ml/min 06/09/25 04:47
eGFR > 60.00 06/09/25 04:47
Glucose 112 mg/dl (70-99) H 06/09/25 04:47
Hemoglobin A1c 5.5 % (4.0-5.9) 06/09/25 04:47
Calcium 8.7 mg/dl (8.4-10.2) 06/09/25 04:47
Magnesium 2.1 mg/dl (1.6-2.3) 06/09/25 04:47
Total Bilirubin 1.1 mg/dl (0.2-1.3) 06/08/25 14:46
AST 24 U/L (14-36) 06/08/25 14:46
ALT 18 U/L (0-35) 06/08/25 14:46
Alkaline Phosphatase 67 U/L (38-126) 06/08/25 14:46
Troponin I < 0.012 ng/ml 06/08/25 14:46
Total Protein 6.9 g/dl (6.3-8.2) 06/08/25 14:46
Albumin 4.0 g/dl (3.5-5.0) 06/08/25 14:46
Triglycerides 278 mg/dl (10-149) H 06/09/25 04:47
Total Cholesterol 224 mg/dl (50-199) H 06/09/25 04:47
LDL Cholesterol, Calc 139 mg/dl 06/09/25 04:47
VLDL Cholesterol, Calc 55 mg/dl (0-30) H 06/09/25 04:47
HDL Cholesterol 30 mg/dl 06/09/25 04:47
POC Glucose 106 mg/dl (70-99) H 06/08/25 14:07
�
Diagnostic Results:�as per HPI�
MRI brain�06/09/2025
�There is a 6 mm acute ischemic infarct in the posterior limb of the left internal capsule demonstrating restricted diffusion and containing mild cytotoxic edema.
There are multiple small chronic ischemic lacunar infarcts in both thalami and putamen measuring up to 4 mm in size in the right putamen. There are small chronic periventricular white matter infarcts in the frontal lobes bilaterally, 2 on the left
and 1 on the right, measuring up to 6 mm in size in the periventricular left frontal lobe. There is a mild to moderate amount of low T1 and high T2/FLAIR signal intensity white matter leukoaraiosis in the frontal lobes. There is mild white matter
leukoaraiosis in the parietal lobes. There is a 5 m chronic ischemic infarct in the left mid griselda. There is a 3 mm chronic ischemic infarct in the right middle cerebellar peduncle.
There is a 5 mm round focus of low T2 gradient echo and low susceptibility signal in the right cerebellar hemisphere consistent with hemosiderin deposition from a chronic intraparenchymal microhemorrhage. The major arterial vascular flow voids at
the base of the brain appear present.
The ventricles are midline without evidence for hydrocephalus. There is no midline shift or herniation.
The orbits appear normal. There is mild to moderate mucosal thickening in the left ethmoid air cells. There is severe mucosal thickening in the left inferior nasal turbinate. The anterior nasal septum is moderately deviated to the right. There is a
small amount of fluid in the left mastoid air cells. The right mastoid air cells are clear.
There is mild multilevel discogenic degenerative disease in the cervical spine with small multilevel disc herniations. There is severe left-sided facet joint arthrosis at C2/C3, C3/C4, and C4/C5.
IMPRESSION:
1. 6 mm ACUTE ISCHEMIC INFARCT in the posterior limb of the left internal capsule.
2. MULTIPLE SMALL CHRONIC ISCHEMIC LACUNAR INFARCTS in the deep mann and white matter bilaterally (multiple infarcts in the thalami and putamen).
3. 6 mm chronic infarct in the griselda.
4. Small chronic periventricular white matter infarcts in the frontal lobes.
5. Moderate periventricular white matter leukoaraiosis in the frontal lobes.
6. 5 mm chronic intraparenchymal microhemorrhage in the right cerebellar hemisphere.
7. Mild diffuse cerebral and cerebellar volume loss.
8. Mild paranasal sinus mucosal disease.
CT head/neck angio stroke alert: 06/08/25
NECK CTA
2 vessel aortic arch with common origin of the brachiocephalic and left common carotid arteries.. No significant stenosis of the brachiocephalic, bilateral common carotid, bilateral subclavian, and bilateral vertebral arteries origins.
Patent bilateral common carotid arteries without significant stenosis.
Patent right carotid bifurcation and right internal carotid artery. Mild atherosclerotic calcifications of the carotid bifurcation/proximal ICA with less than 30% stenosis by NASA criteria. There is retropharyngeal course of the proximal ICA.
Patent left carotid bifurcation and left internal carotid artery. Mild atherosclerotic calcifications with less than 30% stenosis by NASA criteria.
Patent bilateral vertebral arteries. Left dominant vertebral artery.
There is a 1.1 cm soft tissue subcutaneous nodule in the anterior right upper chest which likely represents a small sebaceous cyst. Loop recorder present within the medial anterior left chest soft tissues. 5 mm nodule within the inferior right
parotid with a normal fatty hilum consistent with a small intraparotid lymph node.
Unremarkable included lung apices.
Multilevel mild degenerative changes of the cervical spine without evidence of aggressive osseous lesion. Edentulous.
HEAD CTA- 06/08/2025
Patent bilateral petrous, cavernous, and supraclinoid internal carotid arteries (ICAs) segments. Mild atherosclerotic calcifications of the cavernous segments without significant stenosis.
Patent bilateral anterior and middle cerebral arteries.
Patent vertebral, basilar, and posterior cerebral arteries.
There is a 2 mm x 2 mm posteriorly directed outpouching along the right paraclinoid ICA (series 402 image 236).
There is no acute intracranial hemorrhage, large vessel territory infarction or mass.There is mild subcortical, deep, and periventricular white matter low-attenuation, compatible with changes of chronic small vessel ischemic disease. Mild
parenchymal volume loss. Hypodensities within the bilateral basal ganglia which are likely prior small lacunar infarctions. The ventricles are normal in size, configuration, and position. . The basal cisterns are patent. Visualized paranasal sinuses
are free of mucosal disease.. Unremarkable appearance of the calvarium. Small soft tissue calcification along the right parietal vertex scalp which is likely benign.
IMPRESSION:
No acute intracranial abnormality. ASPECT score: 10
IMPRESSION:
CTA Head: No large vessel occlusion. No significant arterial stenosis. 2 x 2 mm posteriorly directed outpouching along the paraclinoid right ICA which likely represents a small aneurysm.
CTA Neck: No significant arterial stenosis. Mild atherosclerotic calcifications of the left carotid bifurcation without significant stenosis.
Assessment: 69-year-old female with PMH of ( COPD on Spiriva and Dulera, diverticular disease, h/o diverticulitis and GI bleed, fibromyalgia, hypertension, anxiety, depression presented with speech difficulty and gait dysfunction found to have
multiple acute infarcts on brain MRI associated with ambulatory dysfunction and ADL dysfunction.
�
Plan�
PM&R�PT/OT to increase independence with ADLs, improve balance, coordination, endurance, strength, mobility, community reintegration, decreased burden of care on others and family education.�
�
CVA: Secondary prophylaxis with aspirin and Plavix for 21 days (06/30/2025) followed by aspirin lifelong, statin, and blood pressure control (SBP less than 180 and diastolic less than 100 to participate with therapy for ischemic stroke). Continue to
monitor neurologic status.�
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
right dominant hemiparesis: High risk for falls and sliding out of chair/bed. Safety reinforced.�
- Avoid using affected arm to help lift or pull patient as this will cause trauma to the shoulder.�
Dysphagia: speech evaluation, started on soft and bite-size with supervision, aspiration precautions.� Advance diet as tolerated.�
Dysarthria: speech evaluation�
HTN: continue medications, monitor closely�
HLD: Atorvastatin 80 mg every afternoon
Coronary artery disease�: Aspirin, statin, beta-cody�
Conjunctivitis: Erythromycin ointment 0.5% qid
COPD: Symbicort 160/4.5 mcg 2 puffs twice daily
Anemia: Likely multifactorial.� Continue to monitor.�
Depression/anxiety : sertraline 200 daily, Seroquel 150 mg bedtime.� Monitor mood, adjust
Skin: monitor for pressure sores/rashes/lesions.�
Pain: acetaminophen as needed.�
Bowel: Colace and Senna, PRN bisacodyl.�
Bladder: Time void, PVRs, PRN straight cath.�
GI Prophylaxis: Pantoprazole�
DVT Prophylaxis: Please comment on chemoprophylaxis restrictions if any
Pulmonary: Incentive spirometry�
Safety: Continue to reinforce assistance with all transfers.�
Code Status:� Full code
Dispo�(date/plan/equipment needs): Home with family care.� Social history reviewed.�
�
Functional and Medical Goals:�Modified Independent with ADL�s, ambulation, transfers�
�
Discharge Destination:�Patient would benefit from acute inpatient for PT/OT to increase independence with ADLs, improve balance, coordination, endurance, strength, mobility, community reintegration once medically stable and cleared
�
Summary of recommendations:
Bowel: Colace and Senna, PRN bisacodyl.�
DVT Prophylaxis: Please comment on chemoprophylaxis restrictions if any
�
Thank you for allowing me to care for your patient. Please contact me with any questions or concerns.
Consultation
-
Date/Time Consultation Requested: 06/09/2025
Date/Time Consultation Performed: 06/10/2025
Requesting Provider: Henrik Mejia
Performing Provider: Katlin Pina/Dr. Gupta
Reason for Consultation: CVA

Documented by User: Cem Gupta MD 06/10/25 12:25
Consultation - Medical
-
Referring Provider:�Henrik Mejia
Chief Complaint:�CVA
�
History of Present Illness:� Patient is a 69-year-old female with PMH of (anxiety, COPD on Spiriva and Dulera, diverticular disease, h/o diverticulitis and GI bleed, fibromyalgia on only as needed, hypertension, h/o uterine fibroids, anxiety,
depression) who presented to the ED with change in speech and worsening gait dysfunction. Patient reported to have fallen and hitting the back of her head 2 days prior to ED visit. MRI of the brain revealed 1.6 mm acute ischemic infarct in the
posterior limb of the left internal capsule. Multiple small chronic ischemic lacunar infarcts in the deep mann and white matter bilaterally 9 multiple infarcts in the thalami and putamen) 6 mm chronic infarct in the griselda. Small chronic
periventricular white matter infarcts in the frontal lobes. Moderate periventricular white matter leukoaraiosis in the frontal lobes. 5 mm chronic intraparenchymal microhemorrhage in the right cerebellar hemisphere. Mild diffuse cerebral and
cerebellum volume loss.
Seen by neurology�with assessment of Abrupt onset of change in speech and ambulation of unclear timing. Most likely toxic metabolic in nature although patient does have a change on MRI which is suggestive of a left internal capsule acute ischemic
stroke. Patient was not a candidate for either tenecteplase or clot retrieval due to low NIH stroke scale and absence of clot for mechanical thrombectomy. Recommended starting on aspirin and Plavix with discontinuation of Plavix after 21 days due
to low NIH stroke scale. 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
�
06/10- Going for echo today.
Past Medical History:�
Procedure History:�Colostomy reversal, sigmoid resection/colostomy formation, cholecystectomy, exploratory lap/JIMI, HELLEN, tonsillectomy
Family History:�DM, CVA- Mom, Dad, Brother
Social History:�
Functional Level Premorbidly:�Independent with all activities�, assist spouse recently with ADLs due to recent toe amputation
Functional Level Currently:� Speech- recommended soft and bite-size with thins and with supervision since cannot rule out silent aspiration. Will follow and observe as tolerated. Bed mobility, grooming,�supervision, lower extremity self-care�min
assist, eating�set up,
�
Tobacco:�Denies�
Alcohol:�Denies�
Drug use:�Denies�
�
Lives with:�Spouse
24-hour assistance available:�Yes
Number of floors:�2
# steps to enter:�2
# steps to second floor: FF
Potential First floor set up:�No
Driving:�Yes
Occupation:�Employed
�
�
Allergies:�
Allergy/AdvReac Type Severity Reaction Status Date / Time
codeine Allergy hives, Verified 06/08/25 14:05
tinnitus
heparin Allergy Unknown Verified 06/08/25 14:05
lorazepam (From Ativan) Allergy Unknown Verified 06/08/25 14:05
�
Review of Systems:�
Constitutional: (x) abNormal _ tired
Eye: (x) abNormal _redness . conjunctivitis
Ear/Nose/Throat: (x) Normal _
Respiratory: (x) Normal _
Cardiovascular: (x) Normal _
Gastrointestinal: (x) Normal _
Genitourinary: (x) Normal _
Musculoskeletal: (x) Normal _
Integumentary: (x) Normal _
Neurologic: (x) abNormal _stroke, dysarthria
Psychiatric: (x) abNormal _anxiety, depression
Endocrine: (x) Normal _
Hematologic/Lymphatic: (x) Normal _
Allergic/Immunologic: (x) Normal _
�
Medications:�
Active Current Visit Medication List
Category Date Time Status
Acetaminophen [Tylenol/Feverall] Med 06/08/25 18:08 Active
650 mg RECTAL Q4HPRN PRN
Acetaminophen [Tylenol] Med 06/08/25 18:08 Active
650 mg PO Q4HPRN PRN
Aspirin Chewable [Low Strength Aspirin] Med 06/09/25 08:00 Active
81 mg PO DAILY
Atorvastatin [Lipitor] Med 06/09/25 18:00 Active
80 mg PO QPM
Budesonide/Formoterol 160/4.5 [Symbicort 160/4.5 Mcg Med 06/08/25 20:00 Active
Inhaler]
2 puff INH R BID
Clopidogrel Bisulfate [Plavix] Med 06/09/25 08:00 Active
75 mg PO DAILY
Erythromycin (Ilotycin) [Erythromycin 0.5% Ophthalmic Med 06/08/25 18:08 Active
Ointment]
See Dose Instructions OPHTH QID
Flush (0.9% Sodium Chloride) [Flush (Nss)] Med 06/08/25 19:00 Active
See Dose Instructions IV PER PROTOCOL
HydrALAZINE [Apresoline] Med 06/08/25 18:32 Active
5 mg IV Q4HPRN PRN
Quetiapine Fumarate [Seroquel] Med 06/08/25 22:00 Active
150 mg PO HS
Sertraline HCl [Zoloft] Med 06/09/25 08:00 Active
200 mg PO DAILY
�
Vitals:�
Temp Pulse Resp BP Pulse Ox
97.6 F 82 17 126/76 99
06/10/25 07:24 06/10/25 07:24 06/10/25 07:24 06/10/25 07:24 06/10/25 07:24
Height 5 ft 5 in
Actual Weight 76.459 kg
Body Mass Index (BMI) 28.0
�
Physical Exam:�
General Appearance/Observation: Well-developed, well-nourished female in no apparent distress.�
Pain/Comfort Assessment: Denies�
Mood/Affect: Appropriate�
�
Integumentary/Operative Site:�
�� Pressure Ulcer Evaluation: absent over heels.�
�
Eyes: Conjunctiva/Lids: some redness, no exudate���� Pupils: pupils equal round and reactive to light and Accommodation,
Ears/Nose/Throat: oral mucosa moist,� throat clear.������������ Lips/Teeth/Gums: normal�
Neck: No muscle spasm or tenderness�
Cardiovascular: Heart: regular, no murmur�
Pulses: dorsalis pedis 2+ bilaterally�
Respiratory: Respiratory Effort/Chest Expansion: normal������� Auscultation: diminished breath sounds, clear to auscultation bilaterally�
Gastrointestinal: abdomen not tender, no distension, normal abdominal bowel sounds
Genitourinary: No Chandler�Extremities:�Edema: None�Cyanosis: None�Trophic�changes: None
�
Neurology Exam:
Orientation: Alert, Oriented to self, Time, Place�
Memory: Impaired, except for basic information
Comprehension: Some impairment with processing.
Two step command: Impaired, needed repeating. Was unable to subtract by 3. Redirected and was still subtracting by 1
Naming: Name TV, clock, table, tray. Able to read time on clock.
Cranial Nerves:
�� CNII:�Pupillary light reflex: Intact����Visual Field: Intact
�� CN III, IV, : Extraocular muscles: Intact�, no convergence
�� CN V:�Facial Sensation�intact�Forehead: Intact,�Maxilla: Intact,�Mandible: Intact
�� CN VII:�Facial movement: weakness on right
�� CN VIII:�Hearing: Normal
�� CN IX/X:�Speech & swallow: dysarthric, mild hoarseness�Position of Uvula: Midline
�� CN XI:�Shoulder shrug: Weakness on right
�� CN XII:�Tongue protrusion: Slight deviation to right
Sensory:
�� Light touch: Intact in bilateral upper and lower extremities
��
�
Reflexes:
�� Biceps: 2+ bilaterally
�� Brachioradialis: 2+ bilaterally
�� Triceps: 2+ bilaterally
�� Patellar: 2+ bilaterally
�� Achilles: absent bilaterally
�� Babinski: Down going bilaterally
�� Clonus: None
�� Stephen: Negative bilaterally�
Cerebellar: Dysmetria/Ataxia: Hbzhpa-nj-cunc coordination impaired on the right
Musculoskeletal: Motor: (Manual muscle scale 0-5)�
Muscle SA EF WE EE FF FA HF KE DF EHL PF
Right� 4 4+ 4 4 4+ 4 4 5 5 5 5
Left 5 5 5 5 5 5 5 5 5 5 5
�
Tone: Normal in all extremities�
Range of Motion: Passively within normal limits in all extremities�
�
Lab Results
Labs
WBC 6.2 10^3/uL (4.8-10.8) 06/09/25 04:47
RBC 4.30 10^6/uL (4.20-5.40) 06/09/25 04:47
Hgb 12.3 g/dL (12.0-16.0) 06/09/25 04:47
Hct 36.5 % (37.0-47.0) L 06/09/25 04:47
MCV 84.9 fL (81.0-99.0) 06/09/25 04:47
MCH 28.6 pg (27.0-31.0) 06/09/25 04:47
MCHC 33.7 g/dL (33.0-37.0) 06/09/25 04:47
RDW 13.6 % (11.5-14.5) 06/09/25 04:47
Plt Count 167 10^3/uL (130-400) 06/09/25 04:47
MPV 9.5 fL (7.4-10.4) 06/09/25 04:47
Abs Immat Gran (auto) 0.0 10^3/uL (0-0.05) 06/08/25 14:46
Absolute Neuts (auto) 3.9 10^3/uL (1.4-6.5) 06/08/25 14:46
Absolute Lymphs (auto) 1.3 10^3/uL (1.2-3.4) 06/08/25 14:46
Absolute Monos (auto) 0.4 10^3/uL (0.1-0.6) 06/08/25 14:46
Absolute Eos (auto) 0.3 10^3/uL (0-0.7) 06/08/25 14:46
Absolute Basos (auto) 0.1 10^3/uL (0-0.2) 06/08/25 14:46
Immature Gran % 0.5 % (0-0.5) 06/08/25 14:46
Neutrophils % 65.4 % (42.2-75.2) 06/08/25 14:46
Lymphocytes % 21.8 % (20.5-51.1) 06/08/25 14:46
Monocytes % 7.1 % (1.7-9.3) 06/08/25 14:46
Eosinophils % 4.3 % (0-6) 06/08/25 14:46
Basophils % 0.9 % (0-2) 06/08/25 14:46
Nucleated RBC % 0 % 06/08/25 14:46
PT 14.9 Sec (11.4-14.6) H 06/08/25 14:46
INR 1.12 06/08/25 14:46
APTT 30.1 Sec (23.4-35.0) 06/08/25 14:46
Sodium 140 mmol/L (135-145) 06/09/25 04:47
Potassium 3.9 mmol/L (3.5-5.1) 06/09/25 04:47
Chloride 105 mmol/L (98-107) 06/09/25 04:47
Carbon Dioxide 27 mmol/L (22-30) 06/09/25 04:47
BUN 13 mg/dl (7-17) 06/09/25 04:47
Creatinine 0.9 mg/dL (0.6-1.0) 06/09/25 04:47
Estimated Creat Clear 60 ml/min 06/09/25 04:47
eGFR > 60.00 06/09/25 04:47
Glucose 112 mg/dl (70-99) H 06/09/25 04:47
Hemoglobin A1c 5.5 % (4.0-5.9) 06/09/25 04:47
Calcium 8.7 mg/dl (8.4-10.2) 06/09/25 04:47
Magnesium 2.1 mg/dl (1.6-2.3) 06/09/25 04:47
Total Bilirubin 1.1 mg/dl (0.2-1.3) 06/08/25 14:46
AST 24 U/L (14-36) 06/08/25 14:46
ALT 18 U/L (0-35) 06/08/25 14:46
Alkaline Phosphatase 67 U/L (38-126) 06/08/25 14:46
Troponin I < 0.012 ng/ml 06/08/25 14:46
Total Protein 6.9 g/dl (6.3-8.2) 06/08/25 14:46
Albumin 4.0 g/dl (3.5-5.0) 06/08/25 14:46
Triglycerides 278 mg/dl (10-149) H 06/09/25 04:47
Total Cholesterol 224 mg/dl (50-199) H 06/09/25 04:47
LDL Cholesterol, Calc 139 mg/dl 06/09/25 04:47
VLDL Cholesterol, Calc 55 mg/dl (0-30) H 06/09/25 04:47
HDL Cholesterol 30 mg/dl 06/09/25 04:47
POC Glucose 106 mg/dl (70-99) H 06/08/25 14:07
�
Diagnostic Results:�as per HPI�
MRI brain�06/09/2025
�There is a 6 mm acute ischemic infarct in the posterior limb of the left internal capsule demonstrating restricted diffusion and containing mild cytotoxic edema.
There are multiple small chronic ischemic lacunar infarcts in both thalami and putamen measuring up to 4 mm in size in the right putamen. There are small chronic periventricular white matter infarcts in the frontal lobes bilaterally, 2 on the left
and 1 on the right, measuring up to 6 mm in size in the periventricular left frontal lobe. There is a mild to moderate amount of low T1 and high T2/FLAIR signal intensity white matter leukoaraiosis in the frontal lobes. There is mild white matter
leukoaraiosis in the parietal lobes. There is a 5 m chronic ischemic infarct in the left mid griselda. There is a 3 mm chronic ischemic infarct in the right middle cerebellar peduncle.
There is a 5 mm round focus of low T2 gradient echo and low susceptibility signal in the right cerebellar hemisphere consistent with hemosiderin deposition from a chronic intraparenchymal microhemorrhage. The major arterial vascular flow voids at
the base of the brain appear present.
The ventricles are midline without evidence for hydrocephalus. There is no midline shift or herniation.
The orbits appear normal. There is mild to moderate mucosal thickening in the left ethmoid air cells. There is severe mucosal thickening in the left inferior nasal turbinate. The anterior nasal septum is moderately deviated to the right. There is a
small amount of fluid in the left mastoid air cells. The right mastoid air cells are clear.
There is mild multilevel discogenic degenerative disease in the cervical spine with small multilevel disc herniations. There is severe left-sided facet joint arthrosis at C2/C3, C3/C4, and C4/C5.
IMPRESSION:
1. 6 mm ACUTE ISCHEMIC INFARCT in the posterior limb of the left internal capsule.
2. MULTIPLE SMALL CHRONIC ISCHEMIC LACUNAR INFARCTS in the deep mann and white matter bilaterally (multiple infarcts in the thalami and putamen).
3. 6 mm chronic infarct in the griselda.
4. Small chronic periventricular white matter infarcts in the frontal lobes.
5. Moderate periventricular white matter leukoaraiosis in the frontal lobes.
6. 5 mm chronic intraparenchymal microhemorrhage in the right cerebellar hemisphere.
7. Mild diffuse cerebral and cerebellar volume loss.
8. Mild paranasal sinus mucosal disease.
CT head/neck angio stroke alert: 06/08/25
NECK CTA
2 vessel aortic arch with common origin of the brachiocephalic and left common carotid arteries.. No significant stenosis of the brachiocephalic, bilateral common carotid, bilateral subclavian, and bilateral vertebral arteries origins.
Patent bilateral common carotid arteries without significant stenosis.
Patent right carotid bifurcation and right internal carotid artery. Mild atherosclerotic calcifications of the carotid bifurcation/proximal ICA with less than 30% stenosis by NASA criteria. There is retropharyngeal course of the proximal ICA.
Patent left carotid bifurcation and left internal carotid artery. Mild atherosclerotic calcifications with less than 30% stenosis by NASA criteria.
Patent bilateral vertebral arteries. Left dominant vertebral artery.
There is a 1.1 cm soft tissue subcutaneous nodule in the anterior right upper chest which likely represents a small sebaceous cyst. Loop recorder present within the medial anterior left chest soft tissues. 5 mm nodule within the inferior right
parotid with a normal fatty hilum consistent with a small intraparotid lymph node.
Unremarkable included lung apices.
Multilevel mild degenerative changes of the cervical spine without evidence of aggressive osseous lesion. Edentulous.
HEAD CTA- 06/08/2025
Patent bilateral petrous, cavernous, and supraclinoid internal carotid arteries (ICAs) segments. Mild atherosclerotic calcifications of the cavernous segments without significant stenosis.
Patent bilateral anterior and middle cerebral arteries.
Patent vertebral, basilar, and posterior cerebral arteries.
There is a 2 mm x 2 mm posteriorly directed outpouching along the right paraclinoid ICA (series 402 image 236).
There is no acute intracranial hemorrhage, large vessel territory infarction or mass.There is mild subcortical, deep, and periventricular white matter low-attenuation, compatible with changes of chronic small vessel ischemic disease. Mild
parenchymal volume loss. Hypodensities within the bilateral basal ganglia which are likely prior small lacunar infarctions. The ventricles are normal in size, configuration, and position. . The basal cisterns are patent. Visualized paranasal sinuses
are free of mucosal disease.. Unremarkable appearance of the calvarium. Small soft tissue calcification along the right parietal vertex scalp which is likely benign.
IMPRESSION:
No acute intracranial abnormality. ASPECT score: 10
IMPRESSION:
CTA Head: No large vessel occlusion. No significant arterial stenosis. 2 x 2 mm posteriorly directed outpouching along the paraclinoid right ICA which likely represents a small aneurysm.
CTA Neck: No significant arterial stenosis. Mild atherosclerotic calcifications of the left carotid bifurcation without significant stenosis.
Assessment:
69-year-old female with PMH (COPD on Spiriva and Dulera, diverticular disease, h/o diverticulitis and GI bleed, fibromyalgia, hypertension, anxiety, depression) with speech difficulty and gait dysfunction found to have multiple acute infarcts on
brain MRI associated with ambulatory, speech, swallow, and ADL dysfunction.
�
Plan�
PM&R�PT/OT to increase independence with ADLs, improve balance, coordination, endurance, strength, mobility, community reintegration, decreased burden of care on others and family education.�
�
CVA: Secondary prophylaxis with aspirin and Plavix for 21 days (06/30/2025) followed by aspirin lifelong, statin, and blood pressure control (SBP less than 180 and diastolic less than 100 to participate with therapy for ischemic stroke). Continue to
monitor neurologic status.�
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
Right dominant hemiparesis: High risk for falls and sliding out of chair/bed. Safety reinforced.�
- Avoid using affected arm to help lift or pull patient as this will cause trauma to the shoulder.�
Dysphagia: speech, started on soft and bite-size with supervision, aspiration precautions.� Advance diet as tolerated.�
Dysarthria: speech�
HTN: only on PRN hydralazine. Would switch to PO. monitor closely�
HLD: Atorvastatin 80 mg every afternoon
Coronary artery disease: Aspirin, statin, beta-cody�
Conjunctivitis: Erythromycin ointment 0.5% qid
COPD: Symbicort 160/4.5 mcg 2 puffs twice daily
Anemia: Likely multifactorial.� Continue to monitor.�
Depression/anxiety: sertraline 200 daily, Seroquel 150 mg bedtime.� Monitor mood, adjust
Skin: monitor for pressure sores/rashes/lesions.�
Pain: acetaminophen as needed.�
Bowel: Colace and Senna, PRN bisacodyl.�
Bladder: Time void, PVRs, PRN straight cath.�
GI Prophylaxis: Pantoprazole�
DVT Prophylaxis: Please comment on chemoprophylaxis restrictions if any
Pulmonary: Incentive spirometry�
Safety: Continue to reinforce assistance with all transfers.�
Code Status:� Full code
Dispo�(date/plan/equipment needs): Home with family care.� Social history reviewed.�
Functional and Medical Goals:�Modified Independent with ADL�s, ambulation, transfers�
Discharge Destination:�Patient would benefit from acute inpatient for PT/OT to increase independence with ADLs, improve balance, coordination, endurance, strength, mobility, community reintegration once medically stable and cleared.
Attending Statement: I saw and examined the patient today.� Reviewed care plan with patient, therapy, nursing, and physician graphic design assistant.� I agree with the above subjective and physical exam, and plan as documented by MARTY Pina with adjustments
made as necessary.� A total of 60 minutes were spent with the patient preparing for the evaluation, obtaining history, performing examination and evaluation, counseling, data review, case management, care coordination, ordering machine operator, and EMR
documentation.
Summary of recommendations:
Discharge Destination:�acute inpatient rehabilitation
HTN: only on PRN hydralazine. Would switch to PO. monitor closely�
Bowel: Colace and Senna, PRN bisacodyl.�
DVT Prophylaxis: Please comment on chemoprophylaxis restrictions if any
�
Thank you for allowing me to care for your patient. Please contact me with any questions or concerns.
Consultation
-
Performing Provider: Katlin Pina/Dr. Cem Jeffries Why
[2025-06-10] MEDS: LOW STRENGTH ASPIRIN 81 MG PO (10:04)
[2025-06-10] MEDS: ERYTHROMYCIN 0.5% OPHTHALMIC OINTMENT 1 APPLIC OPHTH ×2 (10:04→14:25)
[2025-06-10] MEDS: PLAVIX 75 MG PO (10:04)
[2025-06-10] MEDS: ZOLOFT 200 MG PO (10:04)
--- NOTE | 2025-06-10 10:32 | W.PN.HOSP.TC ---
Addendum entered and electronically signed by Lance Godinez MD 06/10/25 13:11:
Please dont use billing under this note, use discharge summary instead
Original Note:
Today's Communication/Plan
-
echo pending
card consult
cotn Telemetry
Assessment / Plan
Assessment / Plan
69yo F with PMHX of COPD, anxiety, Hx of GIB came with L fascial droppoing and dysarthria found acute L internal capsule CVA, no clinically significant carotid stenosis or LVO on CTA head. Neurology deemed not a candidate for tPa or thrombectomy due
to low NIH and no LVO. temetry concernign for arrhythmia
A/P:
#Acute L internal capsule CVA
#HLD
Echo pending
Telemety
ASA, statin
Plavix for 21 days
PT/OT: acute rehab as per Respiratory Care Specialist
LDL 139
HgbA1c 5.5%
#2nd degree AVB, concern for Afib
cardio consult
EKG 12 leds
Avoid BB and CCB
telemetry cont
check TSH
#Anxiety d/o
#COPD, not in exacebation
cont home meds
DVT ppx SCDs
full code
I have spent at least 58min reviewign chart, test results, communication with consultants and providing direct patient care
Anticipated Discharge: 24 - 48 hours
Subjective/Interval History
-
Date of Service: June 10, 2025
Objective Data
-
Vital Signs:
Vital Signs
Temp Pulse Resp BP Pulse Ox
97.6 F 82 17 126/76 99
06/10/25 07:24 06/10/25 07:24 06/10/25 07:24 06/10/25 07:24 06/10/25 07:24
I&O
06/09/25 06/10/25 06/11/25
06:59 06:59 06:59
Intake Total 240 / 240 960 / 960
Balance 240 / 240 960 / 960
Review of Systems
-
History Source: Patient
All other systems: Reviewed and negative
Physical Exam
-
General: No Apparent Distress
HEENT: Other
Respiratory: Clear to Auscultation
Cardiac: Regular Rhythm
GI: Soft, Nontender and Nondistended
Neuro: Awake, Alert, Oriented, AO x 3, Slurred Speech and Facial Droop (R)
Psych: Calm
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
[2025-06-10 10:51] VITALS: BP 158/78
--- NOTE | 2025-06-10 10:51 | PTCARENOTE ---
Bubble study done with Mala pool technician.
[2025-06-10 12:06] VITALS: BP 140/84; PULSE 78; O2SAT 96
--- NOTE | 2025-06-10 13:10 | W.DCSUMMARY ---
Discharge Summary
Discharge Data
Date of Admission: 06/09/25
Date of Discharge: 06/10/25
-
Pending Results: No
Hospital Course
69yo F with PMHX of COPD, anxiety, Hx of GIB came with L fascial droppoing and dysarthria found acute L internal capsule CVA, no clinically significant carotid stenosis or LVO on CTA head. Neurology deemed not a candidate for tPa or thrombectomy due
to low NIH and no LVO. temetry concerning for arrhythmia with 1st degree AVB with occasional Weikenbach - cardio recommended outpatient cardiac rehabilitation specialist
I have spent at least 58min reviewign chart, test results, communication with consultants and providing direct patient care
Medcially stable for d/c to [facility] as patient is accepted:
#Acute L internal capsule CVA
#HLD
#R eye acute conjuctivitis
#1st degree AVB with occasional Weikenbach
#Anxiety d/o
#COPD, not in exacebation
Discharge Plan
-
Patient Disposition: Acute Rehab Facility
Discharge Diagnosis/Procedures: Stroke
Referrals:
Jc Villafana MD [Active, Cardiology] - in less than 1 week
Referral Note: for cardiac rehabilitation specialist
David Liao MD [Family Provider, [facility]]
Additional Discharge Medication Instructions: cont erythromycin for 6 more days
Prescriptions:
New
erythromycin 5 mg/gram (0.5 %) Ointment
1 applic ophthalmic (eye) QID Qty: 3.5 0RF
Rx Instructions:
R eye
clopidogrel 75 mg Tablet
75 mg PO DAILY Qty: 20 0RF
aspirin 81 mg Tablet,Chewable
81 mg PO DAILY Qty: 30 0RF
Continued
sertraline 100 MG tablet
200 mg PO DAILY
Dulera 1 PUFF HFA aerosol inhaler
1 puff inhalation R BID
quetiapine 50 mg Tablet
150 mg PO HS
Discharge Orders:
Discharge Patient (As Directed); Ordered 06/10/25
Ordered By: Lance Godinez
Discharge Date and Time
Print Language: THAI
[2025-06-10 14:36] VITALS: BP 140/84; PULSE 80; O2SAT 96
--- NOTE | 2025-06-10 15:15 | CM ---
Patient has been medically cleared for discharge to [facility] acute [facility]. Insurance auth obtained as follows: Approved for 5 days,
06/10/25 through to and including 06/14/25. LCD and NRD is 06/14/25. Concurrent review phone # [phone]. Auth # [id number].
Nurse to Nurse Report #: [phone]
Fax#: [phone]
[facility] can accept at 3:30 PM today, 06/10/25.
[2025-06-10 15:20] VITALS: BP 155/81
--- NOTE | 2025-06-10 15:44 | PTCARENOTE ---
attempted to call report to [facility], [facility] and call back for report.
== END 2025-06-10 17:19 | DRG 64 ==
LOC: 3 WEST ACU 10:36
PROVIDERS: Physician Assistant Medical; ADMITTING PHYSICIAN Hospitalist; ATTENDING PHYSICIAN Internal Medicine; CONSULT PHYSICIAN Internal Medicine; CONSULT PHYSICIAN Physical Medicine & Rehabilitation; CONSULT PHYSICIAN Psychiatry & Neurology Neurology; EMERGENCY PHYSICIAN Emergency Medicine; FAMILY PHYSICIAN Family Medicine
DX: I63.9 Cerebral infarction, unspecified (principal); G93.41 Metabolic encephalopathy; G81.91 Hemiplegia, unspecified affecting right dominant side; I44.1 Atrioventricular block, second degree; J44.9 Chronic obstructive pulmonary disease, unspecified; F41.9 Anxiety disorder, unspecified; F32.A Depression, unspecified; E78.5 Hyperlipidemia, unspecified; D64.9 Anemia, unspecified; R47.01 Aphasia; Z79.02 Long term (current) use of antithrombotics/antiplatelets; Z79.82 Long term (current) use of aspirin; Z79.899 Other long term (current) drug therapy
CPT/HCPCS: 70450; 70496; 70498; 70551; 80048; 80053; 80061; 82962; 83036; 83735; 84443; 84484; 85025; 85027; 85610; 85730; 92523; 92610; 93005; 93306; 94640; 97112; 97116; 97163; 97167; 97535; 99285; Q9967

== ENCOUNTER 2025-07-15 11:50 | Day surgery (SDC) | payer OTHER, MEDICARE, SELFPAY ==
--- NOTE | 2025-07-15 16:29 | ITS.CL.IMPLP ---
Teaching Associate - Implant Loop
Implant Loop
Procedure Report:
Date of Procedure: July 15, 2025.
Procedure: Insertable Loop Recorder Implant.
Indication: Embolic stroke of unknown source.
Performing physician: Modesto Louis MD, [facility].
Implant: [employer]tronic; Reveal LINQII; Model# LNQ22; Serial# [id number].
Technique: The patient was prepped and draped in the usual fashion. A time-out was performed. No intravenous sedation was administered. Local anesthetic was applied to the left pre-pectoral subcutaneous tissue. Using the insertion kit an incision
was made left of the midline in the fourth intercostal space and the device was implanted subcutaneously and directed towards the nipple. Hemostasis was excellent. The skin was closed with steri-strips. The estimated blood loss was less than 0.5 ml.
There were no complications. No fluoroscopy. R waves measured 0.6 mV and P waves were visible.
Final Programming: Detections: Afib, tachy at 160 bpm, linda at 30 bpm, pause at 3 sec.
Conclusion: Uncomplicated insertable loop implant.
Recommendation: Routine post-insertable loop care. The device is MRI conditional without a waiting period and up to 3 She.
cc: Jc Villafana MD, PhD and Douglas Little MD.
== END 2025-07-15 13:52 | disposition home or self-care (01) ==
LOC: CATH 11:50
PROVIDERS: ATTENDING PHYSICIAN Internal Medicine Cardiovascular Disease; FAMILY PHYSICIAN Family Medicine; OTHER PHYSICIAN Nurse Practitioner Gerontology
DX: Z86.73 Personal history of transient ischemic attack (TIA), and cerebral infarction without residual deficits (principal); Z09 Encounter for follow-up examination after completed treatment for conditions other than malignant neoplasm; Z79.82 Long term (current) use of aspirin; Z79.899 Other long term (current) drug therapy
CPT/HCPCS: 33285; C1764